=== PATIENT | male | born 1945 | race Caucasian/White ===

== ENCOUNTER 2020-04-18 13:31 | Outpatient (CLI) | payer MEDICARE, SELFPAY ==
[2020-04-18 14:24] LABS: Basophils Absolute Auto 0.1 K/mm3 (0.0-0.1); Basophils Percent Auto 1.1 % (0.2-1.2); Eosinophils Absolute Auto 0.2 K/mm3 (0-0.3); Eosinophils Percent Auto 2.5 % (0-4.4); Hemoglobin 15.7 g/dL (14.0-18.0); Immature Granulocyte Absolute 0.02 K/mm3 (0.00-0.031); Immature Granulocyte Percent A 0.3 % (0-0.5); Lymphocytes Absolute Auto 2.13 K/mm3 (0.9-3.2); Lymphocytes Percent Auto 29.6 % (18.3-44.2); Mean Corpuscular HGB Conc 33.4 g/dl (32-36); Mean Corpuscular Volume 95.9 fl (80-100); Mean Platelet Volume 11.6 fl (7.4-10.4); Monocytes Absolute Auto 0.6 K/mm3 (0.1-0.6); Monocytes Percent Auto 8.3 % (2.6-8.5); Neutrophils Absolute Auto 4.2 K/mm3 (1.3-6.7); Neutrophils Percent Auto 58.2 % (45.5-73.1); Platelet Count Result 221 k/mm3 (150-375); Red Cell Distribution Width 12.4 % (11.5-14.5); White Blood Count 7.2 K/mm3 (4.5-10.0)
[2020-04-18 14:32] LABS: Prothrombin Time 12.7 Seconds (11.1-14.7)
[2020-04-18 14:34] LABS: Blood Urea Nitrogen 26 mg/dL (9-20); Calcium 9.3 mg/dL (8.4-10.2); Carbon Dioxide 27 mmol/L (22-30); Chloride 104 mmol/L (98-107); Estimated Glomerular Filt Rate 59; Glucose 83 mg/dL (75-110); Potassium 3.9 mmol/L (3.4-5.0); Sodium 138 mmol/L (137-145)
[2020-04-18 14:38] LABS: Partial Thromboplastin Time 30.4 SECONDS (22.3-36.8)
== END 2020-04-18 13:32 | disposition home or self-care (01) ==
LOC: ANHSURGERY 13:34
PROVIDERS: PCP Physician Assistant; Visit Provider Urology
DX: Z01.818 Encounter for other preprocedural examination (principal); C67.9 Malignant neoplasm of bladder, unspecified
CPT/HCPCS: 36415; 80048; 85025; 85610; 85730; 87086

== ENCOUNTER 2020-04-21 00:48 | Outpatient (CLI) | payer MEDICARE, SELFPAY ==
[2020-04-21 16:40] LABS: SARS-CoV-2 RNA PCR Negative
== END 2020-04-21 00:49 | disposition home or self-care (01) ==
LOC: ANHCOVIDDT 00:49
PROVIDERS: PCP Physician Assistant; Visit Provider Urology
DX: Z01.812 Encounter for preprocedural laboratory examination (principal); Z20.828 Contact with and (suspected) exposure to other viral communicable diseases; C67.9 Malignant neoplasm of bladder, unspecified
CPT/HCPCS: 87635; C9803; U0003

== ENCOUNTER 2020-04-24 01:01 | Day surgery (SDC) | payer MEDICARE, SELFPAY ==
[2020-04-16 15:47] VITALS: BMI 28.5
[2020-04-24] VITALS (8 sets, daily range): BP systolic 115–158; BP diastolic 67–83; PULSE 50–77; RESP 11–16; TEMP 36.4–37.1; O2SAT 97–99
[2020-04-24] MEDS: LACTATED RINGERS 1,000 ML 30 ML IV CONT (09:40)
--- NOTE | 2020-04-24 09:45 | WPDANESEPPF ---
Anes - Initial Pre Proc Eval Procedure: Operation Date: 04/24/20 11:30 Proposed Procedures p Cystoscopy, Bladder Biopsy With Fulguration, - Kashif Langston MD s Possible Transurethral Resection Bladder Tumor - Kashif Langston MD Date/Time: 04/24/20 09:45 Surgeon: Kashif Langston MD Pre Op Diagnosis: Bladder Ca/ Hematuria Patient Data Age: 74 Gender: M Height: 5 ft 9 in Weight: 88.9 kg Allergies Allergy/AdvReac Type Severity Reaction Status Date / Time No Known Allergies Allergy Verified 04/24/20 09:16 Home Medications Medication Instructions Recorded Confirmed Type citalopram [Celexa] 10 mg PO HS 04/16/20 04/24/20 History donepezil 5 mg PO BID 04/16/20 04/24/20 History memantine 5 mg PO QPM 04/16/20 04/24/20 History Patient hx anesthesia problems: none Family hx anesthesia problems: none [facility] Past Medical History Medical History (Updated 04/24/20 @ 09:46 by Holger Huntley MD) Bladder cancer Hyperlipidemia Overweight Social History Social History Smoking status: Never smoker Alcohol intake: current Gender identity (if verbalized by the patient): Male Anes - Eval Final PreProcedure Day of Procedure 04/24/20 09:45 Patient weight: overweight Heart: regular rate and rhythm Lungs: clear to auscultation Airway: Mallampati scale class II Neurological: alert and oriented Last oral intake: >/= 8 hours ASA classification: III Emergent: no Anesthetic plan: proceed Anesthesia type and monitoring: general LMA and standard monitoring Informed Consent: The patient's anesthetic plan and its attendant risks and benefits were discussed with the patient/family/POA. Questions were solicited and answers provided to the satisfaction of the patient/family/POA.
--- NOTE | 2020-04-24 10:06 | WPDHPUPDATE1 ---
History and Physical Update Update Date/Time: 04/24/20 10:06 History and Physical has been reviewed, including an updated exam of the patient. There are NO changes in the patient's condition. Risks, benefits, and alternatives have been discussed and questions answered. Patient agrees to proceed with procedure.
[2020-04-24] MEDS: ceFAZolin 2 GM/D5W 50 ML 2 GM/50 ML BAG IVPB (10:28)
[2020-04-24] MEDS: LIDOCAINE HCL 2% GEL UROJET 10 ML PKG MUCOUS MEM (10:46)
--- NOTE | 2020-04-24 11:05 | P.OP_ITS ---
Procedure Note - Detailed Date of procedure: 04/24/20 Pre-op diagnosis: Bladder Ca/ Hematuria Post-op diagnosis: same Procedure performed: Cystoscopy with transurethral resection bladder tumor medium size 3 cm area Description of procedure: Patient was taken to the operative suite and correctly identified. Once anesthesia was obtained he was placed in the dorsal lithotomy position and prepped and draped in the usual sterile fashion. Twenty-four Luxembourgish resectoscope sheath was inserted into the bladder. He has 3-4 tumors at the dome anterior wall the bladder. Although they were measured only approximately 3-4 mm in size the area in question was around 3 cm. We went ahead and resected this entire area. The fulgurated the base using a rollerball. Hemostasis was adequate. 2% viscous lidocaine was inserted into the urethra and he was taken recovery room in stable condition. His is instructed to call for the path report in a week's time. Anesthesia: GLMA Surgeon: Kashif Langston MD Drains: No Packing: No Pathology: yes Complications: No immediate complications Condition: stable Disposition: PACU
== END 2020-04-24 12:27 | disposition home or self-care (01) ==
PROVIDERS: PCP Physician Assistant; Visit Provider Urology
PROC: 0TBB8ZZ Excision of Bladder, Via Natural or Artificial Opening Endoscopic (ICD-10-PCS; CPT 52235; 2020-04-24 11:30)
DX: C67.1 Malignant neoplasm of dome of bladder (principal)
CPT/HCPCS: 52235; 88305; 88307; A9270; J0690; J2405; J2704; J3010; J7120

== ENCOUNTER 2020-05-22 18:17 | Emergency (ER) | payer MEDICARE, SELFPAY ==
--- NOTE | ~2020-05-22 | XR_ITS ---
XR chest 2V 05/22/2020 18:44 Indication: Chest pain Procedure: 2 view chest Comparison: No prior studies for comparison. Findings: Heart size is normal. Elevated right diaphragm. There is right middle lobe and lower lobe i nfiltrates. No pleural effusion, edema or pneumothorax. Impression: 1: Right middle and lower lobe infiltrates which may represent atelectasis, scarring or developing pn eumonia. Reviewed, dictated and finalized at location A. Impression: 1: Right middle and lower lobe infiltrates which may represent atelectasis, sca rring or developing pneumonia.
--- NOTE | ~2020-05-22 | CT_ITS ---
EXAMINATION: CT abdomen pelvis w con DATE: 05/22/2020 20:39 INDICATION: Epigastric pain TECHNIQUE: Computed tomography (CT) of the abdomen and pelvis was performed with 100 cc Omnipaque 350 intravenous contrast. The dose-length product was 699.05 mGy-cm. Automated exposure control and iter ative reconstruction technique were employed. COMPARISON: CT dated 03/11/2018 FINDINGS: Elevated right diaphragm. There is right lower lobe atelectasis. There is atherosclerosis o f the coronary arteries and aorta. Heart size is normal. No significant pleural or pericardial effusi on. The liver, spleen, pancreas, adrenal glands are unremarkable. There are bilateral renal cysts. No lym phadenopathy. Mild bladder wall thickening with subtle perivesical infiltration, suspicious for cysti tis. Colonic diverticulosis without evidence for diverticulitis. Normal appendix. No free air or free fluid. No abnormal pelvic masses or fluid collections. Mild lumbar spondylosis. IMPRESSION: 1. Mild bladder wall thickening with subtle perivesical infiltration of the fat, suspicious for cysti tis. Correlate with urinalysis. 2: Elevated right diaphragm suggesting phrenic nerve paralysis. Right lower lobe atelectasis. Reviewed, dictated and finalized at location A. IMPRESSION: 1. Mild bladder wall thickening with subtle perivesical infiltration of the fat , suspicious for cystitis. Correlate with urinalysis. 2: Elevated right diaphragm suggesting phrenic nerve paralysis. Right lower lob e atelectasis.
--- NOTE | 2020-05-22 18:19 | ECG_ITS ---
Measurements Intervals [place] Rate: 72 P: 32 VT: 173 QRS: -48 QRSD: 142 T: -21 QT: 417 QTc: 457 Interpretive Statements SINUS RHYTHM ATRIAL AND VENTRICULAR PREMATURE COMPLEXES RIGHT BUNDLE BRANCH BLOCK LEFT ANTERIOR FASCICULAR BLOCK BASELINE ARTIFACT- I, III, AVL, AVF ABNORMAL ECG Electronically Signed On 05-22-2020 18:58:07 CDT by Wiliam Melissa D.O.
[2020-05-22 18:20] VITALS: BP 170/81; PULSE 71; RESP 18; TEMP 37.4; O2SAT 97
[2020-05-22 18:36] LABS: Basophils Absolute Auto 0.1 K/mm3 (0.0-0.1); Eosinophils Absolute Auto 0.1 K/mm3 (0-0.3); Eosinophils Percent Auto 1.3 % (0-4.4); Hematocrit 44.5 % (42.0-52.0); Hemoglobin 15.1 g/dL (14.0-18.0); Immature Granulocyte Absolute 0.01 K/mm3 (0.00-0.031); Immature Granulocyte Percent A 0.2 % (0-0.5); Lymphocytes Absolute Auto 1.29 K/mm3 (0.9-3.2); Lymphocytes Percent Auto 20.8 % (18.3-44.2); Mean Corpuscular HGB Conc 33.9 g/dl (32-36); Mean Corpuscular Hemoglobin 32.7 pg (26-34); Mean Corpuscular Volume 96.3 fl (80-100); Mean Platelet Volume 11.3 fl (7.4-10.4); Monocytes Absolute Auto 0.8 K/mm3 (0.1-0.6); Monocytes Percent Auto 13.2 % (2.6-8.5); Neutrophils Percent Auto 63.5 % (45.5-73.1); Platelet Count Result 178 k/mm3 (150-375); Red Blood Count 4.62 M/mm3 (4.6-6.20); Red Cell Distribution Width 12.6 % (11.5-14.5); White Blood Count 6.2 K/mm3 (4.5-10.0)
[2020-05-22 18:47] LABS: Prothrombin Time 12.8 Seconds (11.1-14.7)
[2020-05-22 18:48] LABS: Blood Urea Nitrogen 19 mg/dL (9-20); Carbon Dioxide 24 mmol/L (22-30); Chloride 103 mmol/L (98-107); Estimated CRCL calculation 51 ml/min; Estimated Glomerular Filt Rate 59; Glucose 94 mg/dL (75-110); Partial Thromboplastin Time 30.6 SECONDS (22.3-36.8); Potassium 3.8 mmol/L (3.4-5.0); Sodium 136 mmol/L (137-145)
[2020-05-22 19:00] LABS: Troponin I < 0.012 ng/mL (0.000-0.034)
[2020-05-22] MEDS: ASPIRIN 81 MG CHEWABLE TABLET 324 MG PO (19:51)
--- NOTE | 2020-05-22 20:33 | ED.GENADULT ---
HPI - General Adult General Chief complaint: Chest Pain Stated complaint: chest pain Time Seen by Provider: 05/22/20 19:42 History of Present Illness HPI narrative: Patient is a 74-year-old male who presents the ER with epigastric pain. Reports is been intermittent over the last week but became increasingly more severe today. It sharp and nonradiating. Associate with nausea but no vomiting. He has no pain at this time. Denies fevers or chills or sweats. Unsure if it is associated with eating. He has no burning indigestion moving up into his chest and back to his mouth. No chest pain or chest pressure. He has been without any diarrhea. Related Data Home Medications Medication Instructions Recorded Confirmed citalopram [Celexa] 10 mg PO HS 04/16/20 04/24/20 donepezil 5 mg PO BID 04/16/20 04/24/20 memantine 5 mg PO QPM 04/16/20 04/24/20 Allergies Allergy/AdvReac Type Severity Reaction Status Date / Time No Known Allergies Allergy Verified 05/22/20 19:47 Review of Systems Review of Systems: All systems reviewed & are unremarkable except as noted in HPI and below Constitutional: Constitutional: Denies chills, Denies fever(s) and Denies weakness ENT: Denies nasal congestion and Denies sore throat Cardiovascular: Cardiovascular: Denies chest pain and Denies radiating jaw, neck or arm pain Gastrointestinal: Gastrointestinal: Reports abdominal pain, Reports nausea and Denies vomiting Genitourinary: Genitourinary: Denies hematuria, Denies oliguria and Denies dysuria PMFSH Past Medical History Medical History (Updated 05/22/20 @ 23:12 by Forrest Mckeon MD) Bladder cancer Dementia Hyperlipidemia Overweight Surgical History Surgical History (Updated 05/22/20 @ 23:10 by Forrest Mckeon MD) H/O cystoscopy Social History Social History Smoking status: Never smoker Alcohol intake: current Gender identity (if verbalized by the patient): Male Exam Narrative: Exam Narrative: GENERAL: Well-appearing, well-nourished, and in no acute distress. HEAD: Normocephalic, atraumatic. ENT: Mucous membranes moist. CHEST: Clear to auscultation. No respiratory distress. HEART: Regular rate and rhythm. Normal peripheral pulses. ABDOMEN: Soft, mild epigastric/right upper quadrant discomfort that is intermittent without guarding, nondistended. EXTREMITIES: Normal range of motion. No edema. SKIN: Warm, dry, no rash. NEURO: Alert and oriented x3. But definitely has some type of dementia as he can not give many details of his disease. Course Course Emergency Course: No significant abnormality on work-up. Will give Bentyl and simethicone for abdominal cramping gas pain. Recommend follow-up with PCP. Vital Signs Vital signs: Vital Signs Temperature 99.3 F 05/22/20 18:20 Pulse Rate 71 05/22/20 18:20 Respiratory Rate 18 05/22/20 18:20 Blood Pressure 170/81 H 05/22/20 18:20 Pulse Oximetry 97 05/22/20 18:20 Temperature 99.3 F 05/22/20 18:20 Pulse Rate 63 05/22/20 22:04 Respiratory Rate 16 05/22/20 22:04 Blood Pressure 162/92 H 05/22/20 22:04 Pulse Oximetry 99 05/22/20 22:04 Medical Decision Making Vital Signs Vital Signs: Vital Signs Temperature 99.3 F 05/22/20 18:20 Pulse Rate 71 05/22/20 18:20 Respiratory Rate 18 05/22/20 18:20 Blood Pressure 170/81 H 05/22/20 18:20 Pulse Oximetry 97 05/22/20 18:20 Temperature 99.3 F 05/22/20 18:20 Pulse Rate 63 05/22/20 22:04 Respiratory Rate 16 05/22/20 22:04 Blood Pressure 162/92 H 05/22/20 22:04 Pulse Oximetry 99 05/22/20 22:04 Lab Data Result diagrams: 05/22/20 18:28 05/22/20 18:28 Labs: Lab Results 05/22/20 05/22/20 05/22/20 Range/Units 18:28 18:28 18:28 WBC 6.2 (4.5-10.0) K/mm3 RBC 4.62 (4.6-6.20) M/mm3 Hgb 15.1 (14.0-18.0) g/dL Hct 44.5 (42.0-52.0) % MCV 96.3 (80-10
[2020-05-22 21:45] LABS: Alanine Aminotransferase 15 U/L (4-50); Alkaline Phosphatase 98 U/L (38-126); Aspartate Amino Transferase 27 U/L (17-59); Bilirubin,Total 0.5 mg/dL (0.2-1.3)
[2020-05-22 21:57] LABS: Troponin I < 0.012 ng/mL (0.000-0.034)
[2020-05-22 22:04] VITALS: BP 162/92; PULSE 63; RESP 16; O2SAT 99
[2020-05-22] MEDS: ONDANSETRON INJ 4 MG/2 ML VIAL IV PUSH (22:41)
[2020-05-22] MEDS: DICYCLOMINE HCL INJ 20 MG/2 ML VIAL IM (22:42)
[2020-05-22] MEDS: SIMETHICONE 125 MG CHEW TAB PO (22:52)
[2020-05-22 23:26] VITALS: BP 155/89; PULSE 68; RESP 16; TEMP 36.3; O2SAT 100
== END 2020-05-22 23:26 | disposition home or self-care (01) ==
PROVIDERS: Emergency Medicine; Emergency Provider Emergency Medicine; PCP Physician Assistant
DX: R10.13 Epigastric pain (principal); Z85.51 Personal history of malignant neoplasm of bladder; F03.90 Unspecified dementia, unspecified severity, without behavioral disturbance, psychotic disturbance, mood disturbance, and anxiety; E78.5 Hyperlipidemia, unspecified; E66.3 Overweight; Z68.26 Body mass index [BMI] 26.0-26.9, adult
CPT/HCPCS: 36415; 71046; 74177; 80048; 80076; 84484; 85025; 85610; 85730; 93005; 96372; 96374; 99284; A9270; J0500; J2405; Q9967

== ENCOUNTER 2020-05-23 08:10 | Inpatient (IN) | payer MEDICARE, SELFPAY ==
--- NOTE | ~2020-05-23 | MR_ITS ---
EXAMINATION: MR brain/brain stem wo/w con DATE: 05/25/2020 14:02 INDICATION: Confusion. TECHNIQUE: Magnetic resonance imaging (MRI) of the brain and brainstem was performed without and with 17 mL MultiHance intravenous contrast. Sequences included sagittal and axial T1-weighted FSE, axial diffusion-weighted FS EPI, axial T2*-weighted GRE, axial T2-weighted FLAIR Propeller, and axial T2-we ighted Propeller. Postcontrast sequences included axial and coronal T1-weighted FSE. Apparent diffusi on coefficient (ADC) maps were created. COMPARISON: Brain MRI 05/27/2017 FINDINGS: There is artifact from the patient's mouth at obscures the anteroinferior brain on some seq uences. There are scattered areas of nonspecific increased T2-weighted signal intensity in the cerebr al white matter and kj, which is within normal limits for the patient's age. There is no intracrani al hemorrhage, acute infarction, or abnormal intracranial mass lesion. The ventricles are normal in s ize. The orbits are normal. There is a trace left mastoid effusion. IMPRESSION: 1. Normal brain. Reviewed, dictated and finalized at location A. IMPRESSION: 1. Normal brain.
[2020-05-23 08:15] VITALS: BP 164/76; PULSE 65; RESP 16; TEMP 37; O2SAT 97
[2020-05-23] MEDS: ONDANSETRON INJ 4 MG/2 ML VIAL IV PUSH (08:48)
[2020-05-23] MEDS: MORPHINE SULFATE 4 MG/ML INJ IV PUSH ×5 (08:48→21:56)
[2020-05-23 09:25] LABS: Troponin I < 0.012 ng/mL (0.000-0.034)
[2020-05-23 10:00] VITALS: BP 110/69; PULSE 58; RESP 16; O2SAT 98
--- NOTE | 2020-05-23 10:12 | ED.ABDPAIN ---
HPI - Abdominal Pain General Chief Complaint: Abdominal Pain Stated Complaint: cp Time Seen by Provider: 05/23/20 08:22 Source: patient and family Mode of arrival: ambulatory Limitations: no limitations History of Present Illness HPI narrative: 74-year-old with a history of bladder cancer, hyperlipidemia, dementia brought in by with complaints of upper abdominal pain since last few days approximately a week. Patient was seen few hours ago for the same and was discharged home soon after his discharge to home patient started having severe pain. He denies any nausea or vomiting. He denies any chest pain or shortness of breath. According to him the pain is just the same pain what he has been having. MD elicited complaint: abdominal pain Pertinent past history: none Onset (ago): day(s) (7) Pain Consistency: constant Location: epigastric Severity: moderate Quality: aching Radiation: epigastric Migration to: no migration Exacerbating factors: nothing Relieving factors: nothing Associated symptoms: nausea Related Data Home Medications Medication Instructions Recorded Confirmed citalopram [Celexa] 10 mg PO HS 04/16/20 04/24/20 donepezil 5 mg PO BID 04/16/20 04/24/20 memantine 5 mg PO QPM 04/16/20 04/24/20 Allergies Allergy/AdvReac Type Severity Reaction Status Date / Time No Known Allergies Allergy Verified 05/23/20 08:19 Review of Systems Review of Systems: All systems reviewed & are unremarkable except as noted in HPI and below Constitutional: Constitutional: Reports no additional constitutional complaints Eyes: Eyes: Reports no additional eye complaints ENT: Reports system reviewed and no additional complaints, except as documented Cardiovascular: Cardiovascular: Reports no additional cardiovascular complaints Respiratory: Respiratory: Reports no additional respiratory complaints Gastrointestinal: Gastrointestinal: Reports as per HPI Genitourinary: Genitourinary: Reports no additional male genitourinary complaints Musculoskeletal: Musculoskeletal: Reports no additional musculoskeletal complaints Integumentary/Breasts: Skin/Breast: Reports system reviewed and no additional complaints, except as docu Neurologic: Reports system reviewed and no additional complaints, except as documented PMFSH Past Medical History Medical History Bladder cancer Dementia Hyperlipidemia Overweight Surgical History Surgical History H/O cystoscopy Social History Social History Smoking status: Never smoker Alcohol intake: current Gender identity (if verbalized by the patient): Male Exam Narrative: Exam Narrative: GENERAL: Well-appearing, well-nourished, and in moderate distress sec to pain. HEAD: Normocephalic, atraumatic. EYES: PERRLA and EOMI. ENT: Nares clear, no rhinorrhea or epistaxis. Mucous membranes moist. NECK: Supple. CHEST: Clear to auscultation. No respiratory distress. HEART: Regular rate and rhythm. No murmur heard. Normal peripheral pulses. ABDOMEN: Soft, tender in the epigastric area , nondistended, normal active bowel sounds. EXTREMITIES: Normal range of motion. No edema. SKIN: Warm, dry, no rash. NEURO: No focal deficits. Alert and oriented x3. PSYCH: Normal mood and affect. Course Course Emergency Course: Patient continues to be in pain after 4 mg of morphine. will repeat morphine for pain. Meanwhile I discussed her EKG and lab work with the right. We will admit him to the hospital for pain control and have GI consult. Vital Signs Vital signs: Vital Signs Temperature 37.0 C 05/23/20 08:15 Pulse Rate 65 05/23/20 08:15 Respiratory Rate 16 05/23/20 08:15 Blood Pressure 164/76 H 05/23/20 08:15 Pulse Oximetry 97 05/23/20 08:15 Temperature 37.0 C 05/23/20 08:15 Pulse Rate 65 05/23/20 08:15 Respi
[2020-05-23 10:58] VITALS: BP 112/69; PULSE 60; RESP 16; O2SAT 96
[2020-05-23 11:40] VITALS: BMI 25.8
--- NOTE | 2020-05-23 11:40 | ADMGEN ---
This patient, Holger Magallanes, was admitted to Medical Room 245-. Patient/family oriented to hospital policies and general routines including ID bracelet, bed and alarms, visiting hours, pain management, procedures, bathroom and other care routines, personal items, smoking policy, room service/diet, and visiting hours. Valuables list has been completed. Information on how to activate the Rapid Response Team has been discussed. Patient/Family are encouraged to report perceived risks to care and to ask questions if they do not understand what they are told or what they should do.
[2020-05-23 11:52] VITALS: BP 141/74; PULSE 55; RESP 16; TEMP 36.6; O2SAT 97
[2020-05-23 11:53] VITALS: BMI 25.8
[2020-05-23] MEDS: SODIUM CHLORIDE 0.9% IV 1,000 ML 75 ML IV CONT (12:49)
--- NOTE | 2020-05-23 13:40 | ECG_ITS ---
Measurements Intervals [place] Rate: 61 P: -6 GA: 156 QRS: -53 QRSD: 143 T: -30 QT: 435 QTc: 440 Interpretive Statements SINUS RHYTHM RIGHT BUNDLE BRANCH BLOCK LEFT ANTERIOR FASCICULAR BLOCK BORDERLINE ST-T WAVE ABNORMALITY- INFERIOR LEADS BASELINE ARTIFACT- I, II, III, AVR, AVL, AVF ABNORMAL ECG Electronically Signed On 05-23-2020 13:46:27 CDT by Wiliam Melissa D.O.
[2020-05-23 14:00] VITALS: BP 151/78; PULSE 64; RESP 14; TEMP 36.8; O2SAT 94
--- NOTE | 2020-05-23 14:06 | WPDGICN ---
Assessment and Plan Assessment and plan (1) Intractable abdominal pain: Code(s): R10.9 - Unspecified abdominal pain Status: Acute Assessment and Plan: more than 2 days, CT scan was done will check liver enzymes and amylase EGD tomorrow in the morning and continue supportive care (2) Atelectasis: Code(s): J98.11 - Atelectasis Status: Acute Assessment and Plan: by hospitalist, no fever and normal O2 sat (3) Bladder cancer: Code(s): C67.9 - Malignant neoplasm of bladder, unspecified Status: Acute Assessment and Plan: he is seeing a urologist (4) Dementia: Code(s): F03.90 - Unspecified dementia without behavioral disturbance Status: Acute Assessment and Plan: monitor for agitation GI Consult Note Consult date/time: 05/23/20 14:06 Reason for consult: epigastric pain HPI: Holger Magallanes is a 74 year old male with history of bladder cancer treated with cystoscopy 1 month ago, dementia here with 2 days of severe pain in epigastric pain with radiation to chest, is here and says that he gets irritable and confused whenever he is dealing with pain or under stress. He came to ER, CXR showed atelectasis, CT scan showed mild bladder wall thickening with subtle perivesical infiltration of the fat and elevated right diaphragm suggesting phrenic nerve paralysis. Right lower lobe atelectasis. He was sent home but came back after few hours with similar symptoms, cardiac work up negative and admitted to the hospital. No report of nausea, vomiting, diarrhea. Patient able to tell me date but got confused with name of hospital. is helping out with history. Review of Systems Constitutional: Constitutional: Denies headache(s) and Denies weakness Eyes: Eyes: Denies blurry vision ENT: Reports Normal hearing present, Denies headache(s) and Denies neck pain Cardiovascular: Cardiovascular: Denies chest pain and Denies dyspnea Respiratory: Respiratory: Denies dyspnea Gastrointestinal: Gastrointestinal: Reports no additional gastrointestinal complaints Genitourinary: Genitourinary: Denies dysuria Musculoskeletal: Musculoskeletal: Denies neck pain Integumentary/Breasts: Skin/Breast: Denies dry skin Neurologic: Reports Normal hearing present, Denies headache(s) and Denies weakness Psychiatric: Psychiatric: Denies anxiety Endocrine: Endocrine: Denies change in body appearance Hematologic/Lymphatic: Hematologic/Lymphatic: Denies easy bleeding Allergic/Immunologic: Allergic/Immunologic: Denies urticaria PMFSH Past Medical History Medical History Bladder cancer Dementia Hyperlipidemia Overweight Surgical History Surgical History H/O cystoscopy Family History Family History (Updated 05/23/20 @ 12:00 by Shaista Tsai RN) Father Colon cancer Sibling Leukemia Social History Social History Smoking status: Never smoker Alcohol intake: current Substance use: never Substance use type: does not use Gender identity (if verbalized by the patient): Male Spiritual care concerns: No Meds Home Medications and Allergies Home Medications Medication Instructions Recorded Confirmed Type citalopram [Celexa] 10 mg PO HS 04/16/20 05/23/20 History donepezil 5 mg PO BID 04/16/20 05/23/20 History memantine 5 mg PO Q12H 04/16/20 05/23/20 History dicyclomine 20 mg PO QID #20 tablet 05/22/20 Rx simethicone 125 mg PO QID #20 cap 05/22/20 Rx Allergies Allergy/AdvReac Type Severity Reaction Status Date / Time No Known Allergies Allergy Verified 05/23/20 08:19 Vital Signs Vital Signs - 24 hr 05/23/20 08:15 05/23/20 10:00 05/23/20 10:58 Temperature 98.6 F Pulse Rate 65 58 L 60 Respiratory Rate 16 16 16 Blood Pressure 164/76 H 110/69 112/69 Pulse Oximetry 97
--- NOTE | 2020-05-23 16:16 | PM.IMHP ---
H&P: HPI History of Present Illness Chief complaint: Abdominal pain Narrative: Holger Magallanes is a 74 year old male with history of bladder cancer severe dementia he has been having complaint of epigastric pain radiating to his chest for 2 days prior to coming to emergency depart his pain was persisting initially patient presented emergency department he had a CT scan of the abdomen did not show significant pathology and was discharged home however he came back to emergency depart as his pain was not improving after discussion with the ER physician we have admitted the patient for pain management and consultation with GI, unfortunately patient with quite severe dementia unable to provide any review of symptoms or history therefore it is recorded after discussing with the ER physician and reviewing electronic record Review of Systems Review of Systems: ROS unobtainable: Yes unobtainable due to medical condition PMFSH Past Medical History Medical History (Updated 05/23/20 @ 14:31 by Antonio Stallings MD) Atelectasis Bladder cancer Dementia Hyperlipidemia Overweight Surgical History Surgical History H/O cystoscopy Family History Family History (Updated 05/23/20 @ 12:00 by Shaista Tsai RN) Father Colon cancer Sibling Leukemia Social History Social History Smoking status: Never smoker Alcohol intake: current Substance use: never Substance use type: does not use Gender identity (if verbalized by the patient): Male Spiritual care concerns: No Meds Home Medications and Allergies Home Medications Medication Instructions Recorded Confirmed Type citalopram [Celexa] 10 mg PO HS 04/16/20 05/23/20 History donepezil 5 mg PO BID 04/16/20 05/23/20 History memantine 5 mg PO Q12H 04/16/20 05/23/20 History dicyclomine 20 mg PO QID #20 tablet 05/22/20 Rx simethicone 125 mg PO QID #20 cap 05/22/20 Rx Allergies Allergy/AdvReac Type Severity Reaction Status Date / Time No Known Allergies Allergy Verified 05/23/20 08:19 Vital Signs Vital Signs - 24 hr 05/23/20 08:15 05/23/20 10:00 05/23/20 10:58 Temperature 98.6 F Pulse Rate 65 58 L 60 Respiratory Rate 16 16 16 Blood Pressure 164/76 H 110/69 112/69 Pulse Oximetry 97 98 96 05/23/20 11:52 05/23/20 14:00 Temperature 98 F 98.2 F Pulse Rate 55 L 64 Respiratory Rate 16 14 Blood Pressure 141/74 H 151/78 H Pulse Oximetry 97 94 Exam Const: General: no acute distress and uncomfortable HENMT: General nose exam: Normal nares present Eyes: General: appearance normal, both eyes and all related structures Sclera: sclerae normal Neck: Neck: supple Chest: Other: No obvious deformity Resp: Effort & Inspection: normal respiratory effort Auscultation: clear to auscultation bilaterally Cardio: Rate: regular rate Rhythm: regular rhythm GI: Auscultation: normal bowel sounds Other: Not distended diffusely tender Skin: General skin exam: normal color Neuro: Other: Patient with severe dementia Extrem: General: normal to inspection Psych: Affect: Anxious affect present Other: Patient with severe dementia H&P: Results Labs Labs: Cardiac Enzymes 05/23/20 Range/Units 08:55 Troponin I < 0.012 (0.000-0.034) ng/mL Assessment and Plan Assessment and plan (1) Intractable abdominal pain: Code(s): R10.9 - Unspecified abdominal pain Status: Acute Assessment and Plan: Holger Magallaens is a 74 year old male with history of bladder cancer severe dementia he has been having complaint of epigastric pain radiating to his chest for 2 days prior to coming to emergency depart his pain was persisting initially patient presented emergency department he had a CT scan of the abdomen did not show significant pathology and was discharged home however he came back to emergency depart as his pain was
[2020-05-23] MEDS: FAMOTIDINE 20 MG/2 ML VIAL IV PUSH (21:45)
[2020-05-23] MEDS: MEMANTINE 5 MG TABLET PO (21:50)
[2020-05-23] MEDS: DONEPEZIL HCL 5 MG TABLET PO (21:51)
[2020-05-23] MEDS: CITALOPRAM HYDROBROMIDE 10 MG TABLET PO (21:51)
[2020-05-23 22:00] VITALS: BP 143/74; PULSE 61; RESP 20; TEMP 36.7; O2SAT 92
[2020-05-24] VITALS (12 sets, daily range): BP systolic 84–152; BP diastolic 43–90; PULSE 53–69; RESP 14–20; TEMP 36.2–37; O2SAT 92–99
[2020-05-24] MEDS: HALOPERIDOL LACTATE 5 MG/ML VIAL IM (01:55)
--- NOTE | 2020-05-24 02:01 | PC.NURSE ---
pt. awoke around 01:20, became combative with [employer]'s-kicked and hit them. Pt. was confused and kept saying he wanted to go home and also call his . After repeated attempts to get the pt. to lie back in bed, a antoine kyle was called when he became agitated and acted aggressive with Dr. Vivas.
--- NOTE | 2020-05-24 02:01 | PM.EVENT ---
Event Note Event Note Event Note: CODE PURPLE NOTE Called to bedside via QUINTIN MORALES to see this 74 year old male who appears to be very confused and paranoid. He keeps stating that we are in his house and that he wants to get up but can't tell us where he wants to go. Nursing staff attempted to put the patient back in his bed and he became combative. The patient was treated with IM haldol, lorazepam and diphenhydramine.
[2020-05-24 07:32] LABS: Basophils Percent Auto 0.5 % (0.2-1.2); Eosinophils Percent Auto 0.3 % (0-4.4); Hemoglobin 14.4 g/dL (14.0-18.0); Immature Granulocyte Absolute 0.02 K/mm3 (0.00-0.031); Immature Granulocyte Percent A 0.3 % (0-0.5); Immature Platelet Fraction Pct 3.7 % (0.9-11.2); Lymphocytes Percent Auto 20.9 % (18.3-44.2); Mean Corpuscular HGB Conc 32.7 g/dl (32-36); Mean Corpuscular Hemoglobin 32.3 pg (26-34); Mean Corpuscular Volume 98.7 fl (80-100); Mean Platelet Volume 11.2 fl (7.4-10.4); Monocytes Percent Auto 13.2 % (2.6-8.5); Neutrophils Percent Auto 64.8 % (45.5-73.1); Platelet Count Result 144 k/mm3 (150-375); Red Blood Count 4.46 M/mm3 (4.6-6.20); Red Cell Distribution Width 12.4 % (11.5-14.5); White Blood Count 7.7 K/mm3 (4.5-10.0)
[2020-05-24] MEDS: SODIUM CHLORIDE 0.9% IV 1,000 ML 75 ML IV CONT ×2 (07:54→22:50)
[2020-05-24 08:52] LABS: Alanine Aminotransferase 19 U/L (4-50); Albumin Level 3.8 g/dL (3.5-5.1); Alkaline Phosphatase 86 U/L (38-126); Amylase 90 U/L (30-110); Aspartate Amino Transferase 40 U/L (17-59); Bilirubin,Total 0.7 mg/dL (0.2-1.3); Blood Urea Nitrogen 23 mg/dL (9-20); Calcium 8.4 mg/dL (8.4-10.2); Carbon Dioxide 24 mmol/L (22-30); Chloride 100 mmol/L (98-107); Estimated CRCL calculation 56 ml/min; Estimated Glomerular Filt Rate > 60; Glucose 75 mg/dL (75-110); Sodium 132 mmol/L (137-145)
[2020-05-24] MEDS: FAMOTIDINE 20 MG/2 ML VIAL IV PUSH (09:01)
--- NOTE | 2020-05-24 10:30 | PC.NURSE ---
at bedside voicing concern about patients procedure today and sedation. Called GI lab and spoke with CIARA Anna regarding these concerns. CIARA Anna reports she will be to bedside to bring patient and down to GI lab where will speak with anesthesiologist.
--- NOTE | 2020-05-24 10:45 | PC.NURSE ---
To GI Lab per stretcher, IV intact.
--- NOTE | 2020-05-24 11:09 | WPDANESEPPF ---
Anes - Initial Pre Proc Eval Procedure: Operation Date: 05/24/20 11:30 Proposed Procedures p Esophagogastroduodenoscopy - Antonio Stallings MD Date/Time: 05/24/20 11:09 Surgeon: Kaylie Merrill MD Pre Op Diagnosis: Abdominal pain Patient Data Age: 74 Gender: M Height: 6 ft Weight: 86.5 kg Last Vital Signs Temp 97.3 F L 05/24/20 06:00 Pulse 64 05/24/20 06:00 Resp 20 05/24/20 06:00 BP 96/43 L 05/24/20 06:00 Pulse Ox 92 05/24/20 06:00 Allergies Allergy/AdvReac Type Severity Reaction Status Date / Time No Known Allergies Allergy Verified 05/23/20 08:19 Home Medications Medication Instructions Recorded Confirmed Type citalopram [Celexa] 10 mg PO HS 04/16/20 05/23/20 History donepezil 5 mg PO BID 04/16/20 05/23/20 History memantine 5 mg PO Q12H 04/16/20 05/23/20 History Laboratory Tests 05/24/20 05/24/20 07:04 08:31 WBC 7.7 K/mm3 K/mm3 (4.5-10.0) RBC 4.46 M/mm3 L M/mm3 (4.6-6.20) Hgb 14.4 g/dL g/dL (14.0-18.0) Hct 44.0 % % (42.0-52.0) MCV 98.7 fl fl (80-100) MCH 32.3 pg pg (26-34) MCHC 32.7 g/dl g/dl (32-36) RDW 12.4 % % (11.5-14.5) Plt Count 144 k/mm3 L k/mm3 (150-375) MPV 11.2 fl H fl (7.4-10.4) Immature Gran % (Auto) 0.3 % % (0-0.5) Neut % (Auto) 64.8 % % (45.5-73.1) Lymph % (Auto) 20.9 % % (18.3-44.2) [place] % (Auto) 13.2 % H % (2.6-8.5) Eos % (Auto) 0.3 % % (0-4.4) Baso % (Auto) 0.5 % % (0.2-1.2) Lymph # (Auto) 1.60 K/mm3 K/mm3 (0.9-3.2) [place] # (Auto) 1.0 K/mm3 H K/mm3 (0.1-0.6) Eos # (Auto) 0.0 K/mm3 K/mm3 (0-0.3) Baso # (Auto) 0.0 K/mm3 K/mm3 (0.0-0.1) Abs Immat Gran (auto) 0.02 K/mm3 K/mm3 (0.00-0.031) Absolute Neuts (auto) 5.0 K/mm3 K/mm3 (1.3-6.7) Absolute Nucleated RBC 0.0 K/mm3 K/mm3 (0.0-0.012) Nucleated RBC % 0.0 % % (0.0-0.2) % Immature Plt Fraction 3.7 % % (0.9-11.2) Sodium 132 mmol/L L mmol/L (137-145) Potassium 4.0 mmol/L mmol/L (3.4-5.0) Chloride 100 mmol/L mmol/L (98-107) Carbon Dioxide 24 mmol/L mmol/L (22-30) BUN 23 mg/dL H mg/dL (9-20) Creatinine 1.10 mg/dL mg/dL (0.7-1.3) Estim Creat Clear Calc 56 ml/min ml/min Estimated GFR > 60 (59 - ) Glucose 75 mg/dL mg/dL (75-110) Calcium 8.4 mg/dL mg/dL (8.4-10.2) Magnesium 2.0 mg/dL mg/dL (1.6-2.3) Total Bilirubin 0.7 mg/dL mg/dL (0.2-1.3) AST 40 U/L U/L (17-59) ALT 19 U/L U/L (4-50) Alkaline Phosphatase 86 U/L U/L (38-126) Total Protein 7.0 g/dL g/dL (6.3-8.2) Albumin 3.8 g/dL g/dL (3.5-5.1) Amylase 90 U/L U/L (30-110) Patient hx anesthesia problems: none Family hx anesthesia problems: none PMFSH Past Medical History Medical History (Updated 05/23/20 @ 14:31 by Antonio Stallings MD) Atelectasis Bladder cancer Dementia Hyperlipidemia Overweight Surgical History Surgical History H/O cystoscopy Family History Family History (Updated 05/23/20 @ 12:00 by Shaista Tsai RN) Father Colon cancer Sibling Leukemia Social History Social History Smoking status: Never smoker Alcohol intake: current Substance use: never Substance use type: does not use Gender identity (if verbalized by the patient): Male Spiritual care concerns: No Anes - Eval Final PreProcedure Day of Procedure 05/24/20 11:09 Patient weight: obese Heart: regular rate and rhythm Lungs: clear to auscultation Airway: Mallampati scale (too sleepy to evaluate; had Ativan 1 mg, Benadryl 25 mg, Haldol 5 mg all IM at 0200 hours for agitation) Neurological: other (see note above) Last oral intake: >/= 8 hours ASA
[2020-05-24] MEDS: LACTATED RINGERS 1,000 ML 150 ML IV CONT (11:14)
--- NOTE | 2020-05-24 11:15 | SUR.PREOP ---
at bedside- spoke with Dr Claudio at length about anesthesia. Holger lethargic and unable to answer questions. Education provided to . also took patients wedding ring to wear and keep during the procedure.
--- NOTE | 2020-05-24 12:50 | PC.NURSE ---
Returned from GI lab per radha. IV intact.
[2020-05-24] MEDS: MEMANTINE 5 MG TABLET PO ×2 (14:20→22:24)
[2020-05-24] MEDS: DONEPEZIL HCL 5 MG TABLET PO ×2 (14:22→22:25)
--- NOTE | 2020-05-24 17:56 | PM.IMPN ---
Progress Note: A&P Assessment and Plan (1) Intractable abdominal pain: Code(s): R10.9 - Unspecified abdominal pain Status: Acute Assessment and Plan: 05/24/20 17:56 Holger Magallanes is a 74 year old male with history of bladder cancer severe dementia he has been having complaint of epigastric pain radiating to his chest for 2 days prior to coming to emergency depart his pain was persisting initially patient presented emergency department he had a CT scan of the abdomen did not show significant pathology and was discharged home however he came back to emergency depart as his pain was not improving after discussion with the ER physician we have admitted the patient for pain management and consultation with GI, unfortunately patient with quite severe dementia unable to provide any review of symptoms or history therefore it is recorded after discussing with the ER physician and reviewing electronic record, last night patient was quite agitated combative he was given Benadryl and Haldol calmed down this morning patient is quite somnolent, he was seen by GI and had a EGD which showed gastritis possibly cause of his epigastric pain, patient is concerned the patient may be reacting to morphine which led him to be more confused, will stop morphine will start the patient on low-dose fentanyl as needed for pain management, patient still is quite somnolent and confused unable to provide any review of symptoms, once patient is more clinically stable will have a PT OT evaluate the patient. (2) Bladder cancer: Code(s): C67.9 - Malignant neoplasm of bladder, unspecified Status: Acute Assessment and Plan: Patient seen by Urology and a month ago and cystoscopy no concern at the present time Subjective Date/time seen: 05/24/20 17:56 Holger Magallanes is a 74 year old male with history of bladder cancer severe dementia he has been having complaint of epigastric pain radiating to his chest for 2 days prior to coming to emergency depart his pain was persisting initially patient presented emergency department he had a CT scan of the abdomen did not show significant pathology and was discharged home however he came back to emergency depart as his pain was not improving after discussion with the ER physician we have admitted the patient for pain management and consultation with GI, unfortunately patient with quite severe dementia unable to provide any review of symptoms or history therefore it is recorded after discussing with the ER physician and reviewing electronic record, last night patient was quite agitated combative he was given Benadryl and Haldol calmed down this morning patient is quite somnolent, he was seen by GI and had a EGD which showed gastritis possibly cause of his epigastric pain, patient is concerned the patient may be reacting to morphine which led him to be more confused, will stop morphine will start the patient on low-dose fentanyl as needed for pain management, patient still is quite somnolent and confused unable to provide any review of symptoms, once patient is more clinically stable will have a PT OT evaluate the patient. Review of Systems Review of Systems: ROS unobtainable: Yes unobtainable due to medical condition Exam Narrative: Exam Narrative: Patient is somnolent Const: General: no acute distress and uncomfortable HENMT: General nose exam: Normal nares present Eyes: General: appearance normal, both eyes and all related structures Sclera: sclerae normal Neck: Other: No retraction Resp: Effort & Inspection: normal respiratory effort Auscultation: clear to auscultation bilaterally Cardio: Rate: regular rate Rhythm: regular rhythm GI: Auscultation: normal bowel sounds Other: Patient is tender epigastric Neuro: Speech: normal speech Sensory Exam: normal sensation Extrem: General: normal to inspection Psych: Other: Patient is quite somnolent Objective Data Vital Signs Vital Signs: V
[2020-05-24] MEDS: CITALOPRAM HYDROBROMIDE 10 MG TABLET PO (22:25)
[2020-05-24] MEDS: PANTOPRAZOLE SODIUM IV 40 MG VIAL IV PUSH (22:25)
[2020-05-25 05:25] LABS: Basophils Percent Auto 0.6 % (0.2-1.2); Eosinophils Absolute Auto 0.1 K/mm3 (0-0.3); Eosinophils Percent Auto 2.2 % (0-4.4); Hematocrit 45.1 % (42.0-52.0); Immature Granulocyte Absolute 0.01 K/mm3 (0.00-0.031); Immature Granulocyte Percent A 0.2 % (0-0.5); Lymphocytes Absolute Auto 1.03 K/mm3 (0.9-3.2); Lymphocytes Percent Auto 22.3 % (18.3-44.2); Mean Corpuscular HGB Conc 33.3 g/dl (32-36); Mean Corpuscular Hemoglobin 31.7 pg (26-34); Mean Corpuscular Volume 95.3 fl (80-100); Mean Platelet Volume 10.5 fl (7.4-10.4); Monocytes Absolute Auto 0.5 K/mm3 (0.1-0.6); Monocytes Percent Auto 11.5 % (2.6-8.5); Neutrophils Absolute Auto 2.9 K/mm3 (1.3-6.7); Neutrophils Percent Auto 63.2 % (45.5-73.1); Platelet Count Result 152 k/mm3 (150-375); Red Blood Count 4.73 M/mm3 (4.6-6.20); White Blood Count 4.6 K/mm3 (4.5-10.0)
[2020-05-25 05:34] LABS: Alanine Aminotransferase 21 U/L (4-50); Albumin Level 3.7 g/dL (3.5-5.1); Alkaline Phosphatase 84 U/L (38-126); Aspartate Amino Transferase 54 U/L (17-59); Bilirubin,Total 1.1 mg/dL (0.2-1.3); Blood Urea Nitrogen 20 mg/dL (9-20); Calcium 8.5 mg/dL (8.4-10.2); Carbon Dioxide 25 mmol/L (22-30); Chloride 102 mmol/L (98-107); Estimated CRCL calculation 56 ml/min; Estimated Glomerular Filt Rate > 60; Glucose 83 mg/dL (75-110); Potassium 3.8 mmol/L (3.4-5.0); Sodium 135 mmol/L (137-145)
[2020-05-25 06:00] VITALS: BP 157/77; PULSE 62; RESP 18; TEMP 36.1; O2SAT 96
--- NOTE | 2020-05-25 08:19 | WPDANESPN ---
Anes - Prog Note Post-Op Date/Time: 05/25/20 08:19 Cardiovascular status: normal Respiratory status: normal Airway patency: baseline Mental status: baseline Post-Op hydration status: normal Vital Signs: Last Vital Signs Temp 36.1 C L 05/25/20 06:00 Pulse 62 05/25/20 06:00 Resp 18 05/25/20 06:00 BP 157/77 H 05/25/20 06:00 Pulse Ox 96 05/25/20 06:00 I/O: Intake & Output 05/24/20 05/25/20 05/25/20 23:59 07:59 15:59 Intake Total 1180 650 Output Total 550 1650 Balance 630 -1000 Laboratory Tests 05/25/20 05:06 05/25/20 05:06 05/24/20 05/25/20 05/25/20 08:31 05:06 05:06 WBC 4.6 RBC 4.73 Hgb 15.0 Hct 45.1 MCV 95.3 MCH 31.7 MCHC 33.3 RDW 12.0 Plt Count 152 MPV 10.5 H Immature Gran % (Auto) 0.2 Neut % (Auto) 63.2 Lymph % (Auto) 22.3 [place] % (Auto) 11.5 H Eos % (Auto) 2.2 Baso % (Auto) 0.6 Lymph # (Auto) 1.03 [place] # (Auto) 0.5 Eos # (Auto) 0.1 Baso # (Auto) 0.0 Abs Immat Gran (auto) 0.01 Absolute Neuts (auto) 2.9 Absolute Nucleated RBC 0.0 Nucleated RBC % 0.0 Sodium 132 L 135 L Potassium 4.0 3.8 Chloride 100 102 Carbon Dioxide 24 25 BUN 23 H 20 Creatinine 1.10 1.10 Estim Creat Clear Calc 56 56 Estimated GFR > 60 > 60 Glucose 75 83 Calcium 8.4 8.5 Magnesium 2.0 Total Bilirubin 0.7 1.1 AST 40 54 ALT 19 21 Alkaline Phosphatase 86 84 Total Protein 7.0 6.0 L Albumin 3.8 3.7 Amylase 90 Microbiology 05/23/20 17:11 Urine Clean Catch Urine Culture - Final Post-procedural complaints: none Patient Feedback: Patient satisfied with anesthetic care.
[2020-05-25] MEDS: PANTOPRAZOLE SODIUM IV 40 MG VIAL IV PUSH (10:48)
[2020-05-25] MEDS: DONEPEZIL HCL 5 MG TABLET PO (10:49)
[2020-05-25] MEDS: MEMANTINE 5 MG TABLET PO (10:49)
--- NOTE | 2020-05-25 11:52 | WPDGIPROGNO ---
Progress Note: A&P Assessment and Plan (1) Erosive gastritis: Code(s): K29.60 - Other gastritis without bleeding Status: Acute Assessment and Plan: no more pain, continue with ppi bid tolerating diet no contraindications to discharge by gi standpoint (2) Abdominal pain: Qualifiers: Abdominal location: epigastric Qualified Code(s): R10.13 - Epigastric pain Code(s): R10.9 - Unspecified abdominal pain Status: Acute Assessment and Plan: resolved (3) Atelectasis: Code(s): J98.11 - Atelectasis Status: Acute Subjective Date/time seen: 05/25/20 11:52 Interval history: no more abdominal pain today and says that tolerating diet Review of Systems Review of Systems: All systems reviewed & are unremarkable except as noted in HPI and below Exam Const: General: comfortable and no acute distress Other: sitting up in chair, good spirits HENMT: General nose exam: Normal nares present Eyes: General: appearance normal, both eyes and all related structures Neck: Neck: no JVD Resp: Auscultation: clear to auscultation bilaterally Cardio: Rate: regular rate Rhythm: regular rhythm GI: Inspection: normal to inspection and non-distended GI Palp: Yes Soft to palpation, No Firmness to palpation present (GI) and Yes Tenderness to palpation present (GI) (mild ttp epigastric, no rebound) Auscultation: normal bowel sounds Skin: General skin exam: normal color Neuro: Speech: normal speech Extrem: General: normal to inspection Psych: Speech and movement: No Slurred speech present Objective Data Vital Signs Vital Signs: Vital Signs - 24 hr 05/24/20 11:56 05/24/20 12:06 05/24/20 12:16 Temperature Pulse Rate 55 L 54 L 54 L Respiratory Rate 15 14 15 Blood Pressure 90/53 L 84/52 L 84/51 L Pulse Oximetry 95 96 92 05/24/20 12:26 05/24/20 12:36 05/24/20 12:54 Temperature Pulse Rate 54 L 54 L 55 L Respiratory Rate 18 16 18 Blood Pressure 91/53 L 91/54 L 136/90 Pulse Oximetry 92 93 98 05/24/20 13:10 05/24/20 13:40 05/24/20 14:40 Temperature 97.1 F L 97.6 F 98.0 F Pulse Rate 53 L 55 L 57 L Respiratory Rate 16 18 17 Blood Pressure 128/75 137/77 130/74 Pulse Oximetry 99 96 93 05/24/20 22:00 05/25/20 06:00 Temperature 97.3 F L 97.0 F L Pulse Rate 69 62 Respiratory Rate 20 18 Blood Pressure 152/57 H 157/77 H Pulse Oximetry 98 96 Intake/Output Intake/Output: Intake & Output 05/22/20 05/23/20 05/24/20 05/25/20 23:59 23:59 23:59 23:59 Intake Total 480 2920 650 Output Total 1540 1650 Balance 480 1380 -1000 Meds/Results Medications: Active Medications Generic Name Dose Route Start Last Admin Trade Name Freq PRN Reason Stop Dose Admin Hydrocodone Bitart/Acetaminophen 1 tab 05/23/20 17:50 [place]man 5-325 Mg PO Q6H PRN Pain Rated 4-6 Citalopram Hydrobromide 10 mg 05/23/20 21:00 05/24/20 22:25 Celexa PO 10 mg HS AV Administration Donepezil HCl 5 mg 05/23/20 21:00 05/25/20 10:49 Aricept PO 5 mg Q12HR AV Administration Fentanyl Citrate 25 mcg 05/24/20 15:40 05/24/20 22:03 Sublimaze IV PUSH 25 mcg Q4H PRN Administration RATED 7-10 Sodium Chloride 1,000 mls @ 75 mls/hr 05/23/20 10:25 05/24/20 22:50 Normal Saline Iv IV CONT 75 mls/hr .[id number] AV Administration Memantine 5 mg 05/23/20 21:00 05/25/20 10:49 Namenda PO 5 mg Q12HR AV Administration Ondansetron HCl 4 mg 05/23/20 10:23 Zofran Inj IV PUSH Q4H PRN Nausea Pantoprazole Sodium 40 mg 05/24/20 21:00 05/25/20 10:48 Protonix Iv IV PUSH 40 mg Q12HR AV Administration Labs Labs: Laboratory Results - last 24 hr 05/25/20 05/25/20 05:06 05:06 WBC 4.6 RBC 4.73 Hgb 15.0 Hct 45.1 MCV 95.3 MCH 31.7 MCHC 33.3 RDW 12.0 Plt Count 152 MPV 10.5 H Immature Gran % (Auto) 0.2 Neut % (Auto) 63.2 Lymph % (Auto) 22.3 [place] % (Auto) 1
[2020-05-25 14:00] VITALS: BP 132/71; PULSE 66; RESP 16; TEMP 36.3; O2SAT 96
--- NOTE | 2020-05-25 15:10 | WPDNEURCNPN ---
Assessment and Plan Assessment and plan (1) Atelectasis: Code(s): J98.11 - Atelectasis Status: Acute (2) Bladder cancer: Code(s): C67.9 - Malignant neoplasm of bladder, unspecified Status: Acute (3) Dementia: Code(s): F03.90 - Unspecified dementia without behavioral disturbance Status: Acute (4) Abdominal pain: Qualifiers: Abdominal location: epigastric Qualified Code(s): R10.13 - Epigastric pain Code(s): R10.9 - Unspecified abdominal pain Status: Acute (5) Intractable abdominal pain: Code(s): R10.9 - Unspecified abdominal pain Status: Acute (6) Vestibular neuropathy: Code(s): H93.3X9 - Disorders of unspecified acoustic nerve Status: Acute (7) Erosive gastritis: Code(s): K29.60 - Other gastritis without bleeding Status: Acute Additional Plan I will reexamine the patient tomorrow and will discuss with his if any further recommendation can be Consult date: 05/25/20 Time Seen: 14:00 HPI: Holger Magallanes is a 74 year old male who was admitted because of abdominal pain for which he was given morphine and he was confused his is present and she tells me that his confusion is resolving and she was debating whether he has dementia or not however when I look at the medication is already on memantine and donepezil the patient overall neurological state is in the brain MRI is unremarkable the patient has been treated and evaluated extensively by ENT by Neurology and people who are familiar with the neural vestibular function and he has had the vertiginous dizziness for quite some time the does admit that he has been having slow progress of the short-term memory deficit Review of Systems Review of Systems: All systems reviewed & are unremarkable except as noted in HPI and below PMFSH Past Medical History Medical History Atelectasis Bladder cancer Dementia Erosive gastritis Hyperlipidemia Overweight Surgical History Surgical History H/O cystoscopy Family History Family History Father Colon cancer Sibling Leukemia Social History Social History Smoking status: Never smoker Alcohol intake: current Substance use: never Substance use type: does not use Gender identity (if verbalized by the patient): Male Spiritual care concerns: No Meds Home Medications and Allergies Home Medications Medication Instructions Recorded Confirmed Type citalopram [Celexa] 10 mg PO HS 04/16/20 05/23/20 History donepezil 5 mg PO BID 04/16/20 05/23/20 History memantine 5 mg PO Q12H 04/16/20 05/23/20 History Allergies Allergy/AdvReac Type Severity Reaction Status Date / Time No Known Allergies Allergy Verified 05/23/20 08:19 Vital Signs Vital Signs - 24 hr 05/24/20 22:00 05/25/20 06:00 05/25/20 14:00 Temperature 36.3 C L 36.1 C L 36.3 C L Pulse Rate 69 62 66 Respiratory Rate 20 18 16 Blood Pressure 152/57 H 157/77 H 132/71 Pulse Oximetry 98 96 96 Exam Const: General: comfortable and no acute distress HENMT: General nose exam: Normal nares present Mouth: Yes moist mucous membranes Eyes: General: appearance normal, both eyes and all related structures Neck: Neck: supple and no JVD Resp: Effort & Inspection: normal respiratory effort Auscultation: clear to auscultation bilaterally Cardio: Rate: regular rate Rhythm: regular rhythm GI: Auscultation: normal bowel sounds Skin: General skin exam: normal color and no rashes or lesions noted Neuro: Other: according to the the patient remains awake alert with the short-term memory deficit without any lateralizing focal motor signs or evidence of stroke Extrem: General: normal to inspection Psych: Other: short-term memory
--- NOTE | 2020-05-25 15:49 | PM.DS ---
DS: Admitting Diagnosis Admitting Diagnosis Admitting Diagnosis: Unspecified abdominal pain DS: Discharge Diagnosis Discharge Diagnosis (1) Intractable abdominal pain: Code(s): R10.9 - Unspecified abdominal pain Status: Acute Assessment and Plan: 05/24/20 17:56 Holger Magallanes is a 74 year old male with history of bladder cancer severe dementia he has been having complaint of epigastric pain radiating to his chest for 2 days prior to coming to emergency depart his pain was persisting initially patient presented emergency department he had a CT scan of the abdomen did not show significant pathology and was discharged home however he came back to emergency depart as his pain was not improving after discussion with the ER physician we have admitted the patient for pain management and consultation with GI, unfortunately patient with quite severe dementia unable to provide any review of symptoms or history therefore it is recorded after discussing with the ER physician and reviewing electronic record, last night patient was quite agitated combative he was given Benadryl and Haldol calmed down this morning patient is quite somnolent, he was seen by GI and had a EGD which showed gastritis possibly cause of his epigastric pain, patient is concerned the patient may be reacting to morphine which led him to be more confused, will stop morphine will start the patient on low-dose fentanyl as needed for pain management, patient still is quite somnolent and confused unable to provide any review of symptoms, once patient is more clinically stable will have a PT OT evaluate the patient. (2) Bladder cancer: Code(s): C67.9 - Malignant neoplasm of bladder, unspecified Status: Acute Assessment and Plan: Patient seen by Urology and a month ago and cystoscopy no concern at the present time DS: Summary Hospital Course Reason for hospitalization: Narrative: Holger Magallanes is a 74 year old male with history of bladder cancer severe dementia he has been having complaint of epigastric pain radiating to his chest for 2 days prior to coming to emergency depart his pain was persisting initially patient presented emergency department he had a CT scan of the abdomen did not show significant pathology and was discharged home however he came back to emergency depart as his pain was not improving after discussion with the ER physician we have admitted the patient for pain management and consultation with GI, unfortunately patient with quite severe dementia unable to provide any review of symptoms or history therefore it is recorded after discussing with the ER physician and reviewing electronic record Hospital Course: Holger Magallanes is a 74 year old male with history of bladder cancer severe dementia he has been having complaint of epigastric pain radiating to his chest for 2 days prior to coming to emergency depart his pain was persisting initially patient presented emergency department he had a CT scan of the abdomen did not show significant pathology and was discharged home however he came back to emergency depart as his pain was not improving after discussion with the ER physician we have admitted the patient for pain management and consultation with GI, unfortunately patient with quite severe dementia unable to provide any review of symptoms or history therefore it is recorded after discussing with the ER physician and reviewing electronic record, last night patient was quite agitated combative he was given Benadryl and Haldol calmed down this morning patient is quite somnolent, he was seen by GI and had a EGD which showed gastritis possibly cause of his epigastric pain, patient is concerned the patient may be reacting to morphine which led him to be more confused, will stop morphine will start the patient on low-dose fentanyl as needed for pain management, patient still is quite somnolent and confused unable to provide any review of symptoms, onc
== END 2020-05-25 17:54 | disposition home or self-care (01) | DRG 392 ==
LOC: ANHED 10:34 → ANH2MED 10:43
PROVIDERS: Internal Medicine Gastroenterology; Admitting Provider Family Medicine; Emergency Provider Family Medicine; PCP Physician Assistant; Visit Provider Family Medicine
PROC: 0DJ08ZZ Inspection of Upper Intestinal Tract, Via Natural or Artificial Opening Endoscopic (ICD-10-PCS; CPT 43235; principal; 2020-05-24 11:30)
DX: K29.60 Other gastritis without bleeding (principal); J98.11 Atelectasis; F03.91 Unspecified dementia, unspecified severity, with behavioral disturbance; F05 Delirium due to known physiological condition; F03.90 Unspecified dementia, unspecified severity, without behavioral disturbance, psychotic disturbance, mood disturbance, and anxiety; R10.9 Unspecified abdominal pain; H93.3X9 Disorders of unspecified acoustic nerve; E78.5 Hyperlipidemia, unspecified; Z85.51 Personal history of malignant neoplasm of bladder
CPT/HCPCS: 36415; 70553; 80053; 82150; 83735; 84484; 85025; 85055; 87081; 87086; 88305; 93005; 96361; 96372; 96374; 96375; 96376; 99285; A9270; A9577; C9113; G0378; J1200; J1630; J2060; J2270; J2405; J2704; J3010; J7030; J7120

== ENCOUNTER 2021-11-26 11:24 | Outpatient (CLI) | payer MEDICARE, SELFPAY ==
[2021-11-26 11:53] LABS: Basophils Absolute Auto 0.1 K/mm3 (0.0-0.1); Basophils Percent Auto 1.2 % (0.2-1.2); Eosinophils Absolute Auto 0.1 K/mm3 (0-0.3); Eosinophils Percent Auto 2.1 % (0-4.4); Hematocrit 49.6 % (42.0-52.0); Hemoglobin 16.4 g/dL (14.0-18.0); Immature Granulocyte Absolute 0.02 K/mm3 (0.00-0.031); Immature Granulocyte Percent A 0.3 % (0-0.5); Lymphocytes Absolute Auto 1.97 K/mm3 (0.9-3.2); Lymphocytes Percent Auto 29.8 % (18.3-44.2); Mean Corpuscular HGB Conc 33.1 g/dl (32-36); Mean Corpuscular Hemoglobin 32.7 pg (26-34); Mean Corpuscular Volume 98.8 fl (80-100); Mean Platelet Volume 10.4 fl (7.4-10.4); Monocytes Absolute Auto 0.5 K/mm3 (0.1-0.6); Monocytes Percent Auto 7.3 % (2.6-8.5); Neutrophils Absolute Auto 3.9 K/mm3 (1.3-6.7); Neutrophils Percent Auto 59.3 % (45.5-73.1); Platelet Count Result 242 k/mm3 (150-375); Red Blood Count 5.02 M/mm3 (4.6-6.20); Red Cell Distribution Width 12.4 % (11.5-14.5); White Blood Count 6.6 K/mm3 (4.5-10.0)
[2021-11-26 12:05] LABS: Anion Gap 11 mmol/L (8-16); Blood Urea Nitrogen 30 mg/dL (9-20); Calcium 9.5 mg/dL (8.4-10.2); Carbon Dioxide 28 mmol/L (22-30); Chloride 102 mmol/L (98-107); Estimated Glomerular Filt Rate 49; Glucose 82 mg/dL (65-110); Potassium 3.5 mmol/L (3.4-5.0); Sodium 141 mmol/L (137-145)
[2021-11-26 12:09] LABS: Prothrombin Time 13.4 Seconds (11.1-14.7)
[2021-11-26 12:21] LABS: Partial Thromboplastin Time 28.8 SECONDS (22.3-36.8)
== END 2021-11-26 11:25 | disposition home or self-care (01) ==
LOC: ANHSURGERY 11:26
PROVIDERS: PCP Physician Assistant; Visit Provider Urology
DX: Z01.818 Encounter for other preprocedural examination (principal); C67.9 Malignant neoplasm of bladder, unspecified; Z51.81 Encounter for therapeutic drug level monitoring; Z79.899 Other long term (current) drug therapy
CPT/HCPCS: 36415; 80048; 85025; 85610; 85730; 87086

== ENCOUNTER → 2021-11-30 01:47 | Outpatient (CLI) | payer MEDICARE, SELFPAY ==
[2021-11-30 14:30] LABS: SARS-CoV-2 RNA PCR Negative
== END ==
PROVIDERS: PCP Physician Assistant; Visit Provider Urology
DX: C67.9 Malignant neoplasm of bladder, unspecified (principal); Z01.812 Encounter for preprocedural laboratory examination; Z20.822 Contact with and (suspected) exposure to COVID-19
CPT/HCPCS: C9803; U0003; U0005

== ENCOUNTER 2021-12-03 01:08 | Day surgery (SDC) | payer MEDICARE, SELFPAY ==
[2021-11-20 13:53] VITALS: BMI 28.6
--- NOTE | 2021-11-20 14:08 | PC.NURSE ---
Report to the Outpatient Waiting Room, entrance under the green pavilion located off [facility], at time ___8:00AM____ on date __12/03/21 . OR Time: __10:00AM . - You and your visitor will be asked a series of questions to screen for COVID 19 for your protection. - A mask is required within the hospital. - Only one visitor is allowed at this time. Patient visitors will be guided where to wait when not with patient. Preoperative COVID Testing Requirements: No COVID Test needed if: (proof is required; if not received patient will have Rapid Test prior to entry) - Patient has received COVID Vaccine at least 14 days prior to procedure date or - Patient has positive COVID test result within last 90 days of surgery date. COVID Test needed if above criteria is not met If not COVID vaccinated a COVID test must be conducted within 72 hours of surgery and patient is asked to isolate self from time of testing until procedure. You will go to the [facility] for your COVID testing. The [facility] site is located at the corner of [address] [facility]. You will only be called if COVID results are positive and your surgeon may reschedule your elective surgery date. Patients may have clear liquids (water, carbonated beverages, clear teas, apple juice) until 3 hours prior to surgery with a maximum of 20 ounces. - No food from midnight until time of surgery - Infants may have breast milk until 4 hours before surgery, infant formula 6 hours prior to surgery. - Children will be allowed to drink immediately following surgery. If applicable, please bring a bottle or sippy cup to assist with drinking. Juice, water, soda, and popsicles are readily available. For infants on formula, please bring formula the day of surgery. Pacifiers are allowed. Take the following medications with a SIP of water the morning of surgery: ___NONE Medications to discontinue per physician HOLD VITAMINS/SUPPLEMENTS 3 DAYS PRE-OP Date to take last dose 11/29/21 Please no make-up, nail nauruan, hairspray, perfume, deodorant, or body powder the day of surgery. No jewelry (including any body piercings) or valuables the day of surgery, leave them at home. Please take a shower or bath the night before, or the morning of, surgery with an antibacterial soap. Wear comfortable, loose fitting clothing. Children are encouraged to wear pajamas. - Jewelry must be removed prior to entering the operating room. Rings and piercings that are not removed may be cut off. - The hospital will not accept responsibility for valuables. - Please leave all valuables, including medications, at home the day of surgery. If you are going home after surgery, a licensed route delivery service driver must drive you home. - NO public transportation without another adult. - We recommend that an adult stay with you for 24 hours following discharge. - We also recommend that you do not drive, make important decision, drink alcoholic beverages, or take any drugs that were not prescribed by your health care provider for at least 24 hours after your discharge time. For Pediatric surgeries, we recommend two adults accompany the child home (only one inside the building at this time). Follow any additional instructions given to you from your surgeon. Telephone instructions given to __PATIENT and asked if any additional questions and then verbalized understanding. Patient advised to call surgeon office or pre surgery nurse liaison [phone] if any additional questions.
[2021-12-03] VITALS (8 sets, daily range): BP systolic 99–158; BP diastolic 55–78; PULSE 61–73; RESP 12–18; TEMP 36.6–36.7; O2SAT 92–97
[2021-12-03] MEDS: LACTATED RINGERS 1,000 ML 30 ML IV CONT ×2 (09:30→12:09)
--- NOTE | 2021-12-03 10:41 | WPDHPUPDATE1 ---
History and Physical Update Update Date/Time: 12/03/21 10:41 History and Physical has been reviewed, including an updated exam of the patient. There are NO changes in the patient's condition. Risks, benefits, and alternatives have been discussed and questions answered. Patient agrees to proceed with procedure. Proceed with cysto, bladder biopsy, TURBT with fulguration
--- NOTE | 2021-12-03 10:53 | WPDANESEPPF ---
Anes - Initial Pre Proc Eval Procedure: Operation Date: 12/03/21 10:30 Proposed Procedures p Trans Urethral Resection Bladder Tumor - Kashif Langston MD s Cystoscopy with Fulguration - Kashif Langston MD Date/Time: 12/03/21 10:53 Surgeon: Kashif Langston MD Pre Op Diagnosis: bladder CA Patient Data Age: 76 Gender: M Height: 1.75 m Weight: 85.5 kg Last Vital Signs Temp 36.7 C 12/03/21 09:30 Pulse 65 12/03/21 09:30 Resp 16 12/03/21 09:30 BP 144/74 H 12/03/21 09:30 Pulse Ox 97 12/03/21 09:30 Allergies Allergy/AdvReac Type Severity Reaction Status Date / Time No Known Allergies Allergy Verified 12/03/21 10:14 Home Medications Medication Instructions Recorded Confirmed Type donepezil 10 mg PO HS 04/16/20 12/03/21 History memantine 10 mg PO Q12H 04/16/20 12/03/21 History cholecalciferol (vitamin D3) 25 mcg PO DAILY 11/20/21 12/03/21 History cyanocobalamin (vitamin B-12) 1,000 mcg PO DAILY 11/20/21 12/03/21 History ginkgo biloba 120 mg PO DAILY 11/20/21 12/03/21 History Patient hx anesthesia problems: none Family hx anesthesia problems: none Results Review: All pre-operative results and documents have been reviewed as part of the pre-operative evaluation. [facility] Past Medical History Medical History (Updated 12/02/21 @ 15:22 by Lzáaro Hdez DO) Anxiety Atelectasis Bladder cancer Dementia Erosive gastritis Hyperlipidemia Overweight Vestibular neuropathy Surgical History Surgical History H/O cystoscopy Family History Family History Father Colon cancer Sibling Leukemia Social History Social History Smoking status: Never smoker Alcohol intake: never Substance use: never Substance use type: does not use Living arrangements: with family Additional living arrangements comments: Gender identity (if verbalized by the patient): Male Spiritual care concerns: No Anes - Eval Final PreProcedure Day of Procedure 12/03/21 10:53 Patient weight: overweight Heart: regular rate and rhythm Lungs: clear to auscultation and normal air movement Airway: Mallampati scale class II Neurological: alert and oriented Last oral intake: >/= 8 hours ASA classification: III Emergent: no Anesthetic plan: proceed Anesthesia type and monitoring: general LMA and standard monitoring Results Review: All pre-operative results and documents have been reviewed as part of the pre-operative evaluation. Informed Consent: The patient's anesthetic plan and its attendant risks and benefits were discussed with the patient/family/POA. Questions were solicited and answers provided to the satisfaction of the patient/family/POA.
[2021-12-03] MEDS: ceFAZolin 2 GM/D5W 50 ML 2 GM/50 ML BAG IVPB (11:04)
[2021-12-03] MEDS: LIDOCAINE HCL 2% GEL UROJET 10 ML PKG MUCOUS MEM (11:26)
--- NOTE | 2021-12-03 11:42 | P.OP_ITS ---
Procedure Note - Detailed Date of Procedure 12/03/21 Pre-op Diagnosis bladder CA Post-op Diagnosis same Procedure Performed Cysto with transurethral section of bladder tumor and fulguration of multiple small tumors approximately a 10-12 each approximately a couple mm in size Surgeon Kashif Langston MD Anesthesia MAC Description of Procedure Patient is taken the operative suite correctly identified. Once anesthesia was obtained he was placed in dorsal lithotomy position and prepped and draped usual sterile fashion. Twenty-four [place] scope was inserted the bladder. He has multiple small tumors along the left lateral wall floor and posterior wall. All of them are anywhere from 2-3 mm in size. However, some are bunched together. We went ahead and tried to resect some of this but his bladder is very thin walled and some from prior scarring made it difficult. We thus decided to fulgurate using a ball electrode. We fulgurated all visible tumor. There was good hemostasis. 2% viscous lidocaine was inserted urethra patient is taken recovery stable condition. He is having significant progressive dementia. As such we will stretch out his scopes probably to in 6 months. Drains No Packing No Pathology yes Complications No immediate complications Condition stable Disposition PACU
[2021-12-03] MEDS: fentaNYL CITRATE INJ (*CRX) 100 MCG/2 ML VIAL 25 MCG IV PUSH ×3 (11:56→12:14)
== END 2021-12-03 13:38 | disposition home or self-care (01) ==
PROVIDERS: PCP Physician Assistant; Visit Provider Urology
PROC: 0TBB8ZZ Excision of Bladder, Via Natural or Artificial Opening Endoscopic (ICD-10-PCS; CPT 52234; principal; 2021-12-03 10:30)
PROC: 0TJB8ZZ Inspection of Bladder, Via Natural or Artificial Opening Endoscopic (ICD-10-PCS; CPT 52000; 2021-12-03 10:30)
DX: N32.89 Other specified disorders of bladder (principal); F03.90 Unspecified dementia, unspecified severity, without behavioral disturbance, psychotic disturbance, mood disturbance, and anxiety; E78.5 Hyperlipidemia, unspecified; F41.9 Anxiety disorder, unspecified; G62.9 Polyneuropathy, unspecified
CPT/HCPCS: 52234; 88305; A9270; J0690; J2704; J3010; J7120

== ENCOUNTER → 2021-12-12 12:11 | Outpatient (REF) | payer MEDICARE, SELFPAY | LOC: ANHLAB 12:11 | PROVIDERS: PCP Physician Assistant; Visit Provider Nurse Practitioner | DX: C44.1122 Basal cell carcinoma of skin of right lower eyelid, including canthus (principal) | CPT/HCPCS: 88305 ==

== ENCOUNTER → 2022-01-13 10:35 | Outpatient (REF) | payer MEDICARE, SELFPAY | LOC: ANHLAB 10:35 | PROVIDERS: PCP Physician Assistant; Visit Provider Nurse Practitioner | DX: C44.1122 Basal cell carcinoma of skin of right lower eyelid, including canthus (principal) | CPT/HCPCS: 88305; 88331 ==

== ENCOUNTER 2022-07-13 12:10 | Emergency (ER) | payer MEDICARE, OTHER, SELFPAY ==
[2022-07-13] VITALS (10 sets, daily range): BP systolic 138–168; BP diastolic 74–90; PULSE 68–82; RESP 13–21; TEMP 36.7; O2SAT 100
--- NOTE | ~2022-07-13 | CT_ITS ---
EXAMINATION: CT chest abdomen pelvis w con DATE: 07/13/2022 14:34 INDICATION: left sided chest wall pain, LUQ pain after fall . TECHNIQUE: Computed tomography (CT) of the chest, abdomen, and pelvis was performed with 100 mL Omnip aque-350 intravenous contrast. Automated exposure control and iterative reconstruction technique were employed. The dose-length product was 1258.36 mGy-cm. COMPARISON: CT abdomen and pelvis 05/22/2020 FINDINGS: CHEST: No thoracic aortic injury. No mediastinal hematoma. No pericardial effusion. No acute lung injury. Senescent change. Dependent atelectasis. 7 mm subsolid right upper lobe pulmona ry nodule. No pleural effusion or pneumothorax. ABDOMEN/PELVIS: No solid organ injury. No evidence of bowel or mesenteric injury. No free fluid or free air. No retroperitoneal hematoma. Pelvic contents are atraumatic. MUSCULOSKELETAL: Mild cortical irregularity of the left anterior fifth rib. Fractures with 1 shaft width posterior dis placement of the left fifth and sixth costochondral cartilage. No fracture or traumatic malalignment of the thoracic or lumbar spine. IMPRESSION: Nondisplaced left anterior fifth rib fracture. Displaced fractures of the left fifth and sixth costoc hondral cartilage. 7 mm subsolid right upper lobe pulmonary nodule, recommend follow-up CT of the [address] in 3-6 months to confirm persistence. Reviewed, dictated and finalized at location K. IMPRESSION: Nondisplaced left anterior fifth rib fracture. Displaced fractures of the left fifth and sixth costochondral cartilage. 7 mm subsolid right upper lobe pulmona ry nodule, recommend follow-up CT of the chest in 3-6 months to confirm persist ence.
--- NOTE | ~2022-07-13 | CT_ITS ---
EXAMINATION: CT cervical spine wo con DATE: 07/13/2022 14:33 INDICATION: trauma TECHNIQUE: Computed tomography (CT) of the cervical spine was performed without intravenous contrast. Automated exposure control and iterative reconstruction technique were employed. The dose-length pro duct was 354.35 mGy-cm. COMPARISON: None FINDINGS: Vertebral Body Alignment: Intact. Craniocervical and atlantoaxial alignment: Moderate degenerative change. Alignment intact. Osseous structures/fracture: No evidence of a lytic or blastic process in the visualized spine. No e vidence of acute fracture. Cervical soft tissues: The paraspinal soft tissues planes are maintained. 7 mm subsolid nodule in the right posterior upper lobe. Degenerative changes: Degenerative changes, without severe neural central canal narrowing. Severe willie ateral neural foraminal narrowing at C5-6. IMPRESSION: No acute fracture or traumatic malalignment in the cervical spine. 7 mm subsolid right upper lobe nod ule, please refer to the concurrent CT chest abdomen and pelvis report for additional details and rec ommendations. Reviewed, dictated and finalized at location K. IMPRESSION: No acute fracture or traumatic malalignment in the cervical spine. 7 mm subsoli d right upper lobe nodule, please refer to the concurrent CT chest abdomen and pelvis report for additional details and recommendations.
--- NOTE | ~2022-07-13 | CT_ITS ---
EXAMINATION: CT brain wo con DATE: 07/13/2022 14:33 INDICATION: head injury . TECHNIQUE: Computed tomography (CT) of the head was performed without intravenous contrast. The mA wa s adjusted according to patient size. Iterative reconstruction technique was employed. The dose-lengt h product was 1059.33 mGy-cm. COMPARISON: MR brain 05/25/2020 FINDINGS: No acute intracranial hemorrhage or extra-axial fluid collection. No hydrocephalus, mass, or herniation. No acute ischemic infarct. Unremarkable dural venous sinus attenuation. No acute osseous abnormality. The aerated spaces are clear. Moderate atrophy and chronic white matter change. Atherosclerotic intracranial calcification. IMPRESSION: No acute intracranial process. Reviewed, dictated and finalized at location K.
--- NOTE | 2022-07-13 12:56 | ED.GENADULT ---
HPI - General Adult General Chief complaint: Fall Stated complaint: fall, head laceration Time Seen by Provider: 07/13/22 12:33 History of Present Illness HPI narrative: 76-year-old male with history of dementia presenting to the emergency department from home with his for evaluation after having a fall. Patient was attempting to transition into his wheelchair when he fell on his left side. Patient is complaining of some left-sided chest abdominal pain. Patient also received a laceration to left side of his scalp. Patient is a poor historian due to dementia.States that the patient is at his baseline. Related Data Home Medications Medication Instructions Recorded Confirmed donepezil 5 mg tablet 10 mg PO HS 04/16/20 12/03/21 memantine 5 mg tablet 10 mg PO Q12H 04/16/20 12/03/21 cholecalciferol (vitamin D3) 25 25 mcg PO DAILY 11/20/21 12/03/21 mcg (1,000 unit) capsule cyanocobalamin (vitamin B-12) 1,000 mcg PO DAILY 11/20/21 12/03/21 1,000 mcg capsule ginkgo biloba 120 mg tablet 120 mg PO DAILY 11/20/21 12/03/21 Allergies Allergy/AdvReac Type Severity Reaction Status Date / Time No Known Allergies Allergy Verified 01/20/22 13:18 Review of Systems Review of Systems: CONSTITUTIONAL: Denies fever, chills, or sweats. EYES: Denies visual changes, redness, or discharge. ENT: Denies rhinorrhea, congestion, sore throat, or otalgia. CARDIOVASCULAR: Denies chest pain, palpitations, or edema. RESPIRATORY: Denies cough or dyspnea. GASTROINTESTINAL: Left upper quadrant abdominal pain GENITOURINARY: Denies dysuria or hematuria. SKIN: Denies rash or itching. MUSCULOSKELETAL: Left-sided chest wall pain NEUROLOGIC: Denies headache, numbness, or weakness. PSYCHIATRIC: Tangential ROS unobtainable: Yes unobtainable due to mental status PMFSH Past Medical History Medical History Anxiety Atelectasis Bladder cancer Dementia Erosive gastritis Hyperlipidemia Overweight Vestibular neuropathy Surgical History Surgical History H/O cystoscopy Family History Family History Father Colon cancer Sibling Leukemia Social History Social History Smoking status: Never smoker Alcohol intake: never Substance use: never Substance use type: does not use Additional living arrangements comments: Gender identity (if verbalized by the patient): Male Spiritual care concerns: No Exam Narrative: APPEARANCE: Well appearing, no pain, no distress, well-nourished. HEAD: normocephalic, laceration to scalp. EYES: PERRLA/EOMI, conjunctivae clear. NOSE: Normal no drainage NECK: Supple. No adenopathy, no masses. RESPIRATORY: Airway patent, respirations nonlabored. Clear to auscultation bilaterally, no rales, rhonchi, wheezing. CARDIOVASCULAR: Regular rate and rhythm without murmurs rubs or gallops. ABDOMINAL: Soft, nontender, nondistended, normal bowel sounds. MUSCULOSKELETAL: Left-sided chest wall tenderness to palpation NEURO: Alert. Cranial nerves II through XII intact. Grossly intact SKIN: Warm, dry. Normal Color. Course Course Emergency Course: Laceration was repaired as described. Patient does have rib fractures. Family was offered admission for pain control. But they prefer to have the patient at home. Due to his underlying dementia they feel he will be better at home. Patient is resting comfortably in the emergency department. Patient has had [place] previously pain control and they feel this will be adequate. Family was updated on reasons to return to the emergency department including worsening fever or worsening shortness of breath. All questions concerns were addressed. Family was comfortable with plan for discharge and close follow-up. Vital Signs Vital signs: Vital
[2022-07-13] MEDS: fentaNYL CITRATE INJ (*CRX) 100 MCG/2 ML VIAL 50 MCG IV PUSH ×2 (13:18→16:01)
[2022-07-13 13:19] LABS: Basophils Absolute Auto 0.1 K/mm3 (0.0-0.1); Basophils Percent Auto 1.1 % (0.2-1.2); Eosinophils Absolute Auto 0.2 K/mm3 (0-0.3); Hematocrit 45.8 % (42.0-52.0); Hemoglobin 15.2 g/dL (14.0-18.0); Immature Granulocyte Absolute 0.08 K/mm3 (0.00-0.031); Immature Granulocyte Percent A 1.1 % (0-0.5); Lymphocytes Absolute Auto 1.72 K/mm3 (0.9-3.2); Lymphocytes Percent Auto 22.7 % (18.3-44.2); Mean Corpuscular HGB Conc 33.2 g/dl (32-36); Mean Corpuscular Hemoglobin 32.5 pg (26-34); Mean Corpuscular Volume 98.1 fl (80-100); Monocytes Absolute Auto 0.4 K/mm3 (0.1-0.6); Monocytes Percent Auto 5.5 % (2.6-8.5); Neutrophils Absolute Auto 5.1 K/mm3 (1.3-6.7); Neutrophils Percent Auto 67.6 % (45.5-73.1); Platelet Count Result 189 k/mm3 (150-375); Red Blood Count 4.67 M/mm3 (4.6-6.20); Red Cell Distribution Width 12.9 % (11.5-14.5); White Blood Count 7.6 K/mm3 (4.5-10.0)
[2022-07-13 13:53] LABS: Alanine Aminotransferase 14 U/L (6-50); Albumin Level 4.4 g/dL (3.5-5.1); Alkaline Phosphatase 111 U/L (38-126); Anion Gap 9 mmol/L (8-16); Aspartate Amino Transferase 25 U/L (17-59); Bilirubin,Total 0.7 mg/dL (0.2-1.3); Blood Urea Nitrogen 31 mg/dL (9-20); Carbon Dioxide 25 mmol/L (22-30); Chloride 104 mmol/L (98-107); Estimated CRCL calculation 45 ml/min; Estimated Glomerular Filt Rate 59; Glucose 95 mg/dL (65-110); Sodium 138 mmol/L (137-145)
[2022-07-13] MEDS: HYDROmorphone HCL INJ (*CRX) 1 MG/ML SYR 0.5 MG IV PUSH (13:55)
--- NOTE | 2022-07-13 15:08 | PC.NURSE ---
Assuming care of this patient.
== END 2022-07-13 17:15 | disposition home or self-care (01) ==
PROVIDERS: Emergency Provider Emergency Medicine; PCP Physician Assistant
DX: S01.01XA Laceration without foreign body of scalp, initial encounter (principal); S22.32XA Fracture of one rib, left side, initial encounter for closed fracture; F03.90 Unspecified dementia, unspecified severity, without behavioral disturbance, psychotic disturbance, mood disturbance, and anxiety; E78.5 Hyperlipidemia, unspecified; Z85.51 Personal history of malignant neoplasm of bladder; E66.3 Overweight; Z68.29 Body mass index [BMI] 29.0-29.9, adult; W01.0XXA Fall on same level from slipping, tripping and stumbling without subsequent striking against object, initial encounter
CPT/HCPCS: 12013; 36415; 70450; 71260; 72125; 74177; 80053; 85025; 96374; 96375; 96376; 99284; J1170; J3010; Q9967

== ENCOUNTER 2023-08-04 08:00 | Outpatient (NON) | payer MEDICARE, OTHER, SELFPAY | END 2023-08-04 08:01 | disposition home or self-care (01) | LOC: ANHLAB 08-07 13:32 | PROVIDERS: PCP Physician Assistant; Visit Provider Nurse Practitioner | DX: C44.319 Basal cell carcinoma of skin of other parts of face (principal) | CPT/HCPCS: 88305 ==

== ENCOUNTER 2023-09-14 14:42 | Outpatient (NON) | payer MEDICARE, OTHER, SELFPAY | END 2023-09-14 14:43 | disposition home or self-care (01) | LOC: ANHLAB 14:42 | PROVIDERS: PCP Physician Assistant; Visit Provider Nurse Practitioner | DX: C44.319 Basal cell carcinoma of skin of other parts of face (principal) | CPT/HCPCS: 88305; 88331 ==

== ENCOUNTER 2024-11-03 13:59 | Inpatient (IN) | payer MEDICARE, OTHER, SELFPAY ==
[2024-11-03 13:54] VITALS: BP 157/90; RESP 48; O2SAT 80
--- NOTE | 2024-11-03 14:17 | ED.GENADULT ---
HPI - General Adult General Chief complaint: Shortness of Breath/Dyspnea Stated complaint: resp distress Time Seen by Provider: 11/03/24 14:02 History of Present Illness HPI narrative: 79-year-old male a history of bladder cancer presented to the emergency department for evaluation for respiratory distress. Patient was found to be saturating 60% on room air and transferred to the emergency department by EMS. Patient was having assisted ventilation upon arrival to the ED. Family confirms that the patient was do not resuscitate. After discussion with the family they agree that they do not want the patient intubated and want to pursue end of life care for the patient. Related Data Home Medications ?Medication ?Instructions ?Recorded ?Confirmed ?Last Taken ?Type memantine 5 mg tablet 5 mg PO Q12H 04/16/20 11/03/24 11/02/24 History cyanocobalamin (vitamin B-12) 1,000 mcg PO DAILY 11/20/21 11/03/24 10/29/24 History 1,000 mcg capsule Allergies Allergy/AdvReac Type Severity Reaction Status Date / Time No Known Allergies Allergy Verified 11/03/24 18:22 Review of Systems Review of Systems: All systems reviewed & are unremarkable except as noted in HPI and below PMFSH Past Medical History Medical History (Updated 11/03/24 @ 21:10 by Carlee Roberto DO) Protein-calorie malnutrition, severe Vertigo Dysphagia Basal cell carcinoma (BCC) of right lower eyelid Anxiety Vestibular neuropathy Erosive gastritis Atelectasis Dementia Hyperlipidemia Bladder cancer Surgical History Surgical History (Updated 11/03/24 @ 20:44 by Carlee Roberto DO) History of transurethral resection of bladder tumor (TURBT) History of vasectomy History of left inguinal hernia repair History of tonsillectomy and adenoidectomy H/O cystoscopy Family History Family History Father Colon cancer Sibling Leukemia Social History Social History (Updated 11/03/24 @ 20:59 by Carlee Roberto DO) Social History: The patient lives at home with his . Code status: DNR /DNI Surrogate decision maker: Smoking status: Never smoker Second hand tobacco smoke exposure: No Alcohol intake: never Substance use: never Substance use type: does not use Do You Feel Safe in your Home?: Yes Lack of Transportation: No Lack of Food: Never True Current Housing: I Have Housing Concerned About Future Housing: No Difficulty Paying Gas/Electric Bills: No Difficulty Paying for Meds: No Currently Unemployed: No Education: High School Diploma/GED Difficulty w/ Childcare or Family Care: No Living arrangements: with family Additional living arrangements comments: Gender identity (if verbalized by the patient): Male Spiritual care concerns: No Exam Narrative: APPEARANCE: Ill-appearing HEAD: normocephalic, atraumatic. EYES: PERRLA/EOMI, conjunctivae clear. NOSE: Normal no drainage EARS:TMS clear with good light reflex. THROAT: Pharynx clear, no exudate. NECK: Supple. No adenopathy, no masses. RESPIRATORY: Airway patent, respirations nonlabored. Clear to auscultation bilaterally, no rales, rhonchi, wheezing. CARDIOVASCULAR: Regular rate and rhythm without murmurs rubs or gallops. ABDOMINAL: Soft, nontender, nondistended, normal bowel sounds MUSCULOSKELETAL: Moves all extremities. Strength/ROM intact, No edema, No calf tenderness. NEURO: Alert. Cranial nerves II through XII intact. Grossly intact SKIN: Warm, dry. Normal Color Course Vital Signs Vital signs: Vital Signs Respiratory Rate 48 H 11/03/24 13:54 Blood Pressure 157/90 H 11/03/24 13:54 Pulse Oximetry 80 L 11/03/24 13:54 Oxygen Delivery Bag Valve Mask 11/03/24 13:54 Oxygen Flow Rate 15 11/03/24 13:54 Temperature 98.8 F 11/03/24 21:18 Pulse Rate 108 H 11/03/24 21:18 Respiratory Rate 36 H 11/03/24 21:18 Blood Pressure 119/60 11/03/24 21:18 Pulse Oximetry 88 L 11/03/24 21:18 Oxygen Delivery Nasal Cannula 11/03/24 14:59 Oxygen Flow Rate 2 11/03/24 14:59 Medical Decision Making MDM Narrative Medical decision making narrative: 79-year-old male arrived to the emergency department respiratory distress saturating 60% on room air and minimally responsive. On arrival patient was DNR. I had emergent discussion with the family and they did not wish to intubate the patient. We discussed intubating the patient and being very aggressive with the workup versus is transitioning the patient to comfort care and helping with end of life after an extensive discussion patient son and prefer the patient to be comfort care. Care coordination was consulted. Comfort care orders were placed. Differential Diagnosis Differential Diagnosis: Pneumonia, aspiration pneumonia, pneumothorax, COVID, RSV Vital Signs Vital Signs: Vital Signs Respiratory Rate 48 H 11/03/24 13:54 Blood Pressure 157/90 H 11/03/24 13:54 Pulse Oximetry 80 L 11/03/24 13:54 Oxygen Delivery Bag Valve Mask 11/03/24 13:54 Oxygen Flow Rate 15 11/03/24 13:54 Temperature 98.8 F 11/03/24 21:18 Pulse Rate 108 H 11/03/24 21:18 Respiratory Rate 36 H 11/03/24 21:18 Blood Pressure 119/60 11/03/24 21:18 Pulse Oximetry 88 L 11/03/24 21:18 Oxygen Delivery Nasal Cannula 11/03/24 14:59 Oxygen Flow Rate 2 11/03/24 14:59 Critical Care Time Critical Care Time Critical Care Time: Yes Total Critical Care Time: 35 Discharge Plan Discharge Clinical Impression: Acute respiratory distress, Need for comfort care Patient Disposition: Still a Patient Condition: Terminal
[2024-11-03] MEDS: LORazepam INJ (*CRX) 2 MG/ML VIAL IV PUSH ×2 (14:28→18:31)
--- NOTE | 2024-11-03 14:36 | PC.NURSE ---
Discussed with spouse medication options- spouse states that she doesn't want the patient to receive morphine- discussed with spouse the use of morphine for end of life pain as well as assisting with air hunger and making it easier to breathe for the patient. spouse and son okay with ativan at this time, and will decide on morphine after seeing how the ativan assists with the patients comfort.
--- NOTE | 2024-11-03 14:52 | PC.NURSE ---
Dietary contacted for comfort cart. Care Coordination at bedside with the family, contacted high school special education teacher who is also now at bedside with family.
--- NOTE | 2024-11-03 14:54 | PC.NURSE ---
Unable to get vital signs to read on the tele monitor, patient breathing, appears comfortable.
--- NOTE | 2024-11-03 16:59 | PC.NURSE ---
Discussed with spouse catheter placement for comfort and to help decrease the amount of turning and moving the patient. Spouse declined catheter placement because she worries about the bladder tumors and doesn't want him to get an infection and be uncomfortable spouse states that he does really good with turns and getting cleaned up and changed - depends are fine
[2024-11-03 17:29] VITALS: BMI 17.9
--- NOTE | 2024-11-03 17:35 | ADMGEN ---
This patient, Holger Magallanes, was admitted to [facility] Surg Room 311-01. Patient/family oriented to hospital policies and general routines including ID bracelet, bed and alarms, visiting hours, pain management, procedures, bathroom and other care routines, personal items, smoking policy, room service/diet, and visiting hours. Information on how to activate the Rapid Response Team has been discussed. Patient/Family are encouraged to report perceived risks to care and to ask questions if they do not understand what they are told or what they should do.
--- NOTE | 2024-11-03 18:05 | P.HP_ITS ---
H&P: HPI History of Present Illness Date/Time: 11/03/24 18:05 [facility] Past Medical History Medical History Anxiety Atelectasis Bladder cancer Dementia Erosive gastritis Hyperlipidemia Overweight Vestibular neuropathy Surgical History Surgical History H/O cystoscopy Family History Family History Father Colon cancer Sibling Leukemia Social History Social History Smoking status: Never smoker Alcohol intake: never Substance use: never Substance use type: does not use Living arrangements: with family Additional living arrangements comments: Gender identity (if verbalized by the patient): Male Spiritual care concerns: No Meds Home Medications and Allergies Home Medications ?Medication ?Instructions ?Recorded ?Confirmed ?Type donepezil 5 mg tablet 10 mg PO HS 04/16/20 12/03/21 History memantine 5 mg tablet 10 mg PO Q12H 04/16/20 12/03/21 History cholecalciferol (vitamin D3) 25 25 mcg PO DAILY 11/20/21 12/03/21 History mcg (1,000 unit) capsule cyanocobalamin (vitamin B-12) 1,000 mcg PO DAILY 11/20/21 12/03/21 History 1,000 mcg capsule ginkgo biloba 120 mg tablet 120 mg PO DAILY 11/20/21 12/03/21 History hydrocodone 5 mg-acetaminophen 325 1 tablet PO Q6H PRN pain #14 tabs 07/13/22 Rx mg tablet Allergies Allergy/AdvReac Type Severity Reaction Status Date / Time No Known Allergies Allergy Verified 01/20/22 13:18 Vital Signs Vital Signs - 24 hr 11/03/24 13:54 11/03/24 13:55 11/03/24 14:59 Respiratory Rate 48 H Blood Pressure 157/90 H Pulse Oximetry 80 L Oxygen Delivery Bag Valve Mask Bag Valve Mask Nasal Cannula Oxygen Flow Rate 15 2
--- NOTE | 2024-11-03 18:32 | PCCCNOTE ---
CC called to the ED for end of life care with family. Pts , son, and step daughter were at bedside. Pts made several statements about the pt wanting to pass at home. I offered hospice and to help get him home, she declined. Explained things to the family, they verbalized understanding. Joseph, the hospital roundhouse worker was contacted to come see the pt and family. Pt declined hospice at home and in GIP status. She said she would prefer the Dr's just keep him comfortable, without using Morphine. The Dr's are aware of her not wanting him to have this. Pt was moved to room 311, family escorted to the room as well.
[2024-11-03 18:41] VITALS: BP 90/57; PULSE 96; RESP 36; TEMP 36.6; O2SAT 80
[2024-11-03 20:00] VITALS: O2SAT 84
--- NOTE | 2024-11-03 20:24 | PM.IMHP ---
H&P: HPI History of Present Illness Date/Time: 11/03/24 20:24 Chief Complaint: Difficulty breathing Narrative: 79-year-old male with past medical history of advanced dementia, erosive esophagitis, vestibular neuropathy, bladder cancer and chronic dysphagia who presented to the ER in over respiratory distress. family reported the thought the patient may have aspirated. He has longstanding history of difficulty managing liquids. EMS reported the patient was satting 64% on room air when they arrived to the home. The patient was receiving assisted ventilation with [id number] on arrival to the ER. Family reported the patient is DNR in confirm that they did not want the patient intubated or to have her roll wick measures. The patient ended has advanced dementia. He has had dementia has been progressing at least for last 4 years. He has had more significant decline in the last year. Over the last 3 months he has had increasingly rapid weight loss with most notable is by family members in the last month. They do not know what the patient's actual weight has been changing but they could tell physically that he was losing weight. The reports that until the last few weeks the patient had had a great appetite. Although he does have history of aspiration and coughing with eating they reported that he was eating and he ?choked really bad? and then started having acute difficulty breathing. In the last 6 months or so patient has been mostly wheelchair dependent. His transfer sent from the bed to the wheelchair. He requires assistance in all activities of daily living. Family denies any history of renal failure, BPH, or strokes. The reports that the patient has been in remission from his bladder cancer for the last 1.5 years. It sounds as if the patient has been followed at the [facility] as outpatient. The patient was admitted the hospital for comfort based care. is adamant that she does not want hospice services at all. On admission Ativan and morphine were ordered for the patient. However the family reported that they did not want the patient to receive morphine at all. She states that the patient stated he would never want morphine because he gave his father a dose of morphine in that his father was in a coma for months after the 1 dose of morphine. His father than . He told her that his father's was clearly related to the morphine so he never wants a drop of morphine to enter his body. Please seemed to be receptive to the potential use of Dilaudid. Review of Systems Review of Systems: ROS unobtainable: Yes unobtainable due to medical condition and unobtainable due to mental status PMFSH Past Medical History Medical History (Updated 11/03/24 @ 21:10 by Carlee Roberto DO) Protein-calorie malnutrition, severe Vertigo Dysphagia Basal cell carcinoma (BCC) of right lower eyelid Anxiety Vestibular neuropathy Erosive gastritis Atelectasis Dementia Hyperlipidemia Bladder cancer Surgical History Surgical History (Updated 11/03/24 @ 20:44 by Carlee Roberto DO) History of transurethral resection of bladder tumor (TURBT) History of vasectomy History of left inguinal hernia repair History of tonsillectomy and adenoidectomy H/O cystoscopy Family History Family History Father Colon cancer Sibling Leukemia Social History Social History (Updated 11/03/24 @ 22:44 by Carlee Roberto DO) Social History: The patient lives at home with his . 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 He and his have been for 28 years. The patient has 1 son and 1 stepdaughter who are both at bedside. The patient is a lifelong nonsmoker and used to occasionally drink alcohol but has not done so in quite some time. Code status: DNR /DNI Surrogate decision maker: Smoking status: Never smoker Second hand tobacco smoke exposure: No Alcohol intake: never Substance use: never Substance use type: does not use Do You Feel Safe in your Home?: Yes Lack of Transportation: No Lack of Food: Never True Current Housing: I Have Housing Concerned About Future Housing: No Difficulty Paying Gas/Electric Bills: No Difficulty Paying for Meds: No Currently Unemployed: No Education: High School Diploma/GED Difficulty w/ Childcare or Family Care: No Living arrangements: with family Additional living arrangements comments: Gender identity (if verbalized by the patient): Male Spiritual care concerns: No Meds Home Medications and Allergies Home Medications ?Medication ?Instructions ?Recorded ?Confirmed ?Type memantine 5 mg tablet 5 mg PO Q12H 04/16/20 11/03/24 History cyanocobalamin (vitamin B-12) 1,000 mcg PO DAILY 11/20/21 11/03/24 History 1,000 mcg capsule Allergies Allergy/AdvReac Type Severity Reaction Status Date / Time No Known Allergies Allergy Verified 11/03/24 18:22 Vital Signs Vital Signs - 24 hr 11/03/24 13:54 11/03/24 13:55 11/03/24 14:59 Temperature Pulse Rate Respiratory Rate 48 H Blood Pressure 157/90 H Pulse Oximetry 80 L Oxygen Delivery Bag Valve Mask Bag Valve Mask Nasal Cannula Oxygen Flow Rate 15 2 11/03/24 18:41 Temperature 98 F Pulse Rate 96 Respiratory Rate 36 H Blood Pressure 90/57 L Pulse Oximetry 80 L Oxygen Delivery Oxygen Flow Rate Exam Narrative: Weight 59.8 kg BMI 17.9 Const: Other: Acutely ill-appearing, debilitated, cachectic HENMT: Other: Mucous membranes are dry, edentulous, no oral pharyngeal erythema, head is normocephalic atraumatic Eyes: Other: Pupils are equal and reactive, no scleral icterus, no conjunctival pallor Neck: Other: No lymphadenopathy, cervical extension Resp: Other: Coarse breath sounds bilaterally,. The rapid tachypnea with respiratory rate of 30 with interspersed episodes of apnea Cardio: Other: Sinus tachycardia, 1+ bilateral radial pulses, not able to palpate pedal pulses GI: Other: Concave abdomen, no palpable masses, hypoactive bowel sounds Skin: Other: Poor skin turgor, mild pallor, central body is warm to touch extremities are cold to touch, mottling of the lower legs bilaterally Neuro: Other: Patient is obtunded, pupils are equal and reactive, patient is responsive to painful stimuli only Extrem: Other: No clubbing, no edema, cyanosis of the nail bed, generalized muscle wasting Psych: Other: Unable to assess due to patient condition Assessment and Plan Assessment and plan (1) End of life care: Code(s): Z51.5 - Encounter for palliative care Status: Acute (2) Acute respiratory distress: Code(s): R06.03 - Acute respiratory distress Status: Acute (3) Bladder cancer: Qualifiers: Bladder location: unspecified site Qualified Code(s): C67.9 - Malignant neoplasm of bladder, unspecified Code(s): C67.9 - Malignant neoplasm of bladder, unspecified Status: Acute (4) Dementia: Qualifiers: Dementia behavioral or psychological symptom: unspecified whether behavioral, psychotic, or mood disturbance or anxiety Dementia severity: severe Dementia type: unspecified type Qualified Code(s): F03.C0 - Unspecified dementia, severe, without behavioral disturbance, psychotic disturbance, mood disturbance, and anxiety Code(s): F03.90 - Unspecified dementia, unspecified severity, without behavioral disturbance, psychotic disturbance, mood disturbance, and anxiety Status: Acute (5) Dysphagia: Qualifiers: Dysphagia type: unspecified Qualified Code(s): R13.10 - Dysphagia, unspecified Code(s): R13.10 - Dysphagia, unspecified Status: Acute Plan Patient has advanced dementia and is currently in in in stages. He has acute hypoxic respiratory failure likely due to aspiration event given known history of longstanding dysphagia. Family wants proceed with comfort based care only. Initially family was refusing morphine. Now they have verbalized that they may be willing to let the patient have some Dilaudid. The patient has been receiving Ativan but is still having significant tachypnea and tachycardia. Although the patient does not appear overtly restless. Placed order for Dilaudid if family will allow the patient to have this. Discussion of regression of physiologic changes with the dying process was discussed with the patient's , son and stepdaughter at bedside. All questions were answered. Quality If No VTE Prophylaxis Answer both mechanical and pharmacologic: Reason no mechanical VTE proph: medical contraindication (Comfort care) Reason no pharmacologic proph: medical contraindication (Comfort care) Hospitalist MIPS Advance Care Plan I have confirmed that the patient's Advanced Care Plan is present, code status is documented, or surrogate decision maker is listed in patient medical record.: Yes Medication Reconciliation I have utilized all available resources to obtain, update and review the patients current medications (includes all prescriptions, OTC, herbals, cannabis, and nutritional supplements).: Yes
[2024-11-03 21:18] VITALS: BP 119/60; PULSE 108; RESP 36; TEMP 37.1; O2SAT 88
--- NOTE | 2024-11-03 23:51 | PC.NURSE ---
Pt's refused catheter placement for pt at this time. Pt's has numerous questions about pt's care moving forward. Pt's family would benefit from a care coordination meeting. This nurse has tried to educate pt's on current care and what we can provide to keep him comfortable. She does not exhibit full understanding of comfort care and continues to become very irritated with her family, who are trying to help her navigate pt's care and options.
[2024-11-04 05:23] VITALS: BP 80/67; PULSE 47; RESP 32; TEMP 37.6; O2SAT 81
[2024-11-04 08:00] VITALS: O2SAT 81
--- NOTE | 2024-11-04 11:06 | PCDIET ---
Nutrition screen: Acknowledge pt screens in for Low BMI, however pt is admitted for comfort care. No nutrition interventions. Please consult if nutrition intervention is needed.
--- NOTE | 2024-11-04 11:24 | P.DN_ITS ---
Discharge Summary Date and Time Date of : 11/04/24 Time of : 11:00 Provider Pronounced By: 2 RNs Name of First RN That Pronounced: Yaa Carroll RN Name of Second RN That Pronounced: Sara Rice RN Probable Cause of Probable Cause of : End stage advanced dementia. Acute respiratory failure with hypoxia. Summary Hospital Course: Patient admitted to hospital for comfort based care. Ativan and pain meds ordered. Additional Data Confirmation of as documented by pronouncing clinician: Pupillary Reflex, Palpable Pulses, Response to Stimuli, Heart Tones and Breath Sounds Family: at bedside Name of Provider Notified: Viry Mobley Time Provider Notified: 11:14 Was code activated?: No Provider Requests Autopsy: No Family Requests Autopsy: No [place] [employer] Notified: Yes Date [facility] Notified of : 11/04/24 Time [facility] Notified of : 11:15 Advance directives: Yes Hospice patient?: No
== END 2024-11-04 11:00 | disposition expired | DRG 951 ==
LOC: ANHED 16:00 → ANH3MEDSUR 16:56
PROVIDERS: Admitting Provider Internal Medicine; Emergency Provider Emergency Medicine; Visit Provider Internal Medicine
DX: Z51.5 Encounter for palliative care (principal); J96.01 Acute respiratory failure with hypoxia; E43 Unspecified severe protein-calorie malnutrition; Z68.1 Body mass index [BMI] 19.9 or less, adult; F03.C0 Unspecified dementia, severe, without behavioral disturbance, psychotic disturbance, mood disturbance, and anxiety; T17.928A Food in respiratory tract, part unspecified causing other injury, initial encounter; Z66 Do not resuscitate; E78.5 Hyperlipidemia, unspecified; R13.10 Dysphagia, unspecified; Z85.828 Personal history of other malignant neoplasm of skin; Z85.51 Personal history of malignant neoplasm of bladder
CPT/HCPCS: 96374; 99285; G0378; J2060